=== PATIENT | male | born 1960 | race Caucasian/White ===

== ENCOUNTER 2020-12-08 11:54 | Emergency (ER) | payer OTHER ==
[~2020-12-08] VITALS: Ht 172.7 cm; Wt 83.0 kg
[2020-12-08 13:33] VITALS: BP 155/84
== END 2020-12-08 14:28 | disposition home or self-care (01) ==
LOC: ER 12:17
DX: Z93.1 Gastrostomy status (principal); Z86.16 Personal history of COVID-19; Z87.898 Personal history of other specified conditions; Z98.890 Other specified postprocedural states
CPT/HCPCS: 99281

== ENCOUNTER 2021-03-03 08:38 | Inpatient (IN) | payer OTHER ==
[2021-03-03] VITALS (26 sets, daily range): BP systolic 74–115; BP diastolic 46–73
[~2021-03-03] VITALS: Ht 170.2 cm; Wt 98.4 kg
[2021-03-03 09:10] LABS: HEMATOCRIT. 51.2 % (42.0-52.0); HEMOGLOBIN. 17.1 g/dL (14.0-18.0); MEAN CORPUSCULAR HEMOGLOBIN 26.7 pg (28.0-32.0); MEAN CORPUSCULAR VOLUME 79.8 fL (80.0-94.0); MEAN PLATELET VOLUME 8.7 fl (7.4-10.4); PLATELET 248 x1000/uL (130-400); RED BLOOD CELL COUNT 6.42 mill/uL (4.7-6.1); RED CELL DISTRIBUTION WIDTH 17.4 % (11.6-14.6)
[2021-03-03 09:21] LABS: CHLORIDE 98 mEq/L (98-107)
[2021-03-03 10:47] LABS: PLATELET ESTIMATE NORMAL
[2021-03-03] MEDS ORDERED: POLYMYXIN B SULFATE 500000 UNITS/VIAL ONE (15:12)
[2021-03-03] MEDS ORDERED: BUPIVACAINE HCL/PF 0.5% (5MG/ML) 10ML ONE (15:12)
[2021-03-03] MEDS ORDERED: ROCURONIUM BROMIDE 10MG/ML VIAL 5ML IV ONE ×2 (16:10→16:58)
[2021-03-03] MEDS ORDERED: DEXAMETHASONE 4MG/ML 1ML VIAL ONE (16:10)
[2021-03-03] MEDS ORDERED: DOPAMINE 400MG/250ML PREMIX 250 ML IV ONE (16:42)
[2021-03-03] MEDS ORDERED: CEFAZOLIN SODIUM 1000MG/VIAL ONE (16:54)
[2021-03-03] MEDS ORDERED: HYDROMORPHONE HCL/PF 2MG/ML (OR) ONE (16:59)
[2021-03-03] MEDS ORDERED: PROPOFOL 10MG/ML 100ML 100 ML IV PRN (17:45)
[2021-03-03] MEDS ORDERED: VASOPRESSIN 20 UNIT/ML 1ML ONE (17:57)
[2021-03-03] MEDS: VASOPRESSIN 20 UNIT in SODIUM CHLORIDE 0.9% 99 ML IV PRN (19:10)
[2021-03-03] MEDS: SODIUM CHLORIDE 0.9% 1,000 ML IV SCH (19:52)
[2021-03-03 20:39] LABS: BG BASE EXCESS -3.3 mmol/L (-2.0-2.0); BG CARBOXYHEMOGLOBIN 1.5 % (0.5-1.5); BG FRACTION INSPIRED OXYGEN 100; BG METHEMOGLOBIN 0.4 % (0.0-1.5); BG OXYGEN SATURATION 91.8 % (92.0-98.5); BG OXYHEMOGLOBIN 90.1 % (94.0-97.0); BG PCO2 74.5 mmHg (35.0-45.0); BG PH 7.177 (7.350-7.450); BG PO2 75.1 mmHg (75.0-100.0); BG SAMPLE SITE RIGHT RADIAL; BG TOTAL HEMOGLOBIN 14.7 g/dL (12.0-18.0); BG TOTAL RESPIRATORY RATE 16 b/min; BG VENT MODE VENT- PRVC
[2021-03-03] MEDS: PHENYLEPHRINE 100 MG in DEXT 5% WATER 240 ML IV PRN (22:11)
[2021-03-04] VITALS (84 sets, daily range): BP systolic 78–122; BP diastolic 33–88
[2021-03-04] MEDS ORDERED: PROPOFOL 10MG/ML 100ML 100 ML IV PRN ×2 (01:00→15:30)
[2021-03-04] MEDS: PHENYLEPHRINE 100 MG in DEXT 5% WATER 240 ML IV PRN ×3 (03:48→20:52)
[2021-03-04] MEDS: VASOPRESSIN 20 UNIT in SODIUM CHLORIDE 0.9% 99 ML IV PRN ×3 (03:48→18:51)
[2021-03-04] MEDS ORDERED: NALOXONE HCL 0.4MG/ML VIAL IV PRN (05:00)
[2021-03-04] MEDS: MORPHINE SULFATE 2 MG/ML CPJ (NOT FOR IM USE) IV PRN ×2 (05:04→22:43)
[2021-03-04] MEDS: SODIUM CHLORIDE 0.9% 1,000 ML IV SCH ×3 (05:05→19:38)
[2021-03-04 05:51] LABS: HEMATOCRIT. 44.9 % (42.0-52.0); HEMOGLOBIN. 14.3 g/dL (14.0-18.0); MEAN CORPUSCULAR HEMOGLOBIN 26.3 pg (28.0-32.0); MEAN CORPUSCULAR VOLUME 82.8 fL (80.0-94.0); MEAN PLATELET VOLUME 8.4 fl (7.4-10.4); PLATELET 259 x1000/uL (130-400); RED BLOOD CELL COUNT 5.42 mill/uL (4.7-6.1); RED CELL DISTRIBUTION WIDTH 17.7 % (11.6-14.6)
[2021-03-04] MEDS: PROPOFOL 10 MG/ML 100 ML IV PRN ×2 (06:58→17:50)
[2021-03-04 08:19] LABS: NUCLEATED RED BLOOD CELLS 1 /100 WBC; PLATELET ESTIMATE NORMAL
[2021-03-04 08:39] LABS: BG CARBOXYHEMOGLOBIN 0.7 % (0.5-1.5); BG DEOXYHEMOGLOBIN 2.3 % (0.0-5.0); BG FRACTION INSPIRED OXYGEN 100; BG HCO3 ACT 22.7 mmol/L (22.0-26.0); BG METHEMOGLOBIN 0.1 % (0.0-1.5); BG OXYGEN SATURATION 97.7 % (92.0-98.5); BG OXYHEMOGLOBIN 96.9 % (94.0-97.0); BG PCO2 52.6 mmHg (35.0-45.0); BG PH 7.253 (7.350-7.450); BG PO2 107.8 mmHg (75.0-100.0); BG SAMPLE SITE RIGHT RADIAL; BG TOTAL HEMOGLOBIN 15.1 g/dL (12.0-18.0); BG VENT MODE VENT - AC
[2021-03-04] MEDS ORDERED: ENOXAPARIN 40MG/0.4ML SYR SUBCUT SCH (09:00)
[2021-03-04] MEDS: ENOXAPARIN 30MG/0.3ML SYR SUBCUT SCH ×2 (09:20→20:51)
[2021-03-04] MEDS: PIPERACILLIN/TAZOBACTAM 3.375 G in DEXTROSE 5% WATER 50 ML IV SCH ×3 (09:21→21:55)
[2021-03-04 15:12] LABS: CLARITY URINE TURBID (CLEAR); COLOR URINE DARK YELLOW (YELLOW); KETONES URINE TRACE (NEGATIVE); LEUKOCYTE ESTERASE URINE TRACE (NEGATIVE); NITRITE URINE NEGATIVE (NEGATIVE); OCCULT BLOOD URINE 2+ (NEGATIVE); PROTEIN URINE 1+ (NEGATIVE); SPECIFIC GRAVITY URINE 1.021 (1.005-1.030)
[2021-03-04] MEDS: IPRATROPIUM/ALBUTEROL 0.5-3(2.5)MG/3ML NEB HHN SCH (20:30)
[2021-03-05] VITALS (85 sets, daily range): BP systolic 82–115; BP diastolic 47–74
[2021-03-05] MEDS: IPRATROPIUM/ALBUTEROL 0.5-3(2.5)MG/3ML NEB HHN SCH ×4 (02:13→20:25)
[2021-03-05] MEDS: VASOPRESSIN 20 UNIT in SODIUM CHLORIDE 0.9% 99 ML IV PRN ×3 (03:21→22:19)
[2021-03-05] MEDS: PHENYLEPHRINE 100 MG in DEXT 5% WATER 240 ML IV PRN ×4 (04:08→19:44)
[2021-03-05] MEDS: SODIUM CHLORIDE 0.9% 1,000 ML IV SCH ×2 (04:36→18:30)
[2021-03-05 05:59] LABS: HEMATOCRIT. 41.8 % (42.0-52.0); HEMOGLOBIN. 13.3 g/dL (14.0-18.0); MEAN CORPUSCULAR HEMOGLOBIN 26.3 pg (28.0-32.0); MEAN CORPUSCULAR VOLUME 82.7 fL (80.0-94.0); MEAN PLATELET VOLUME 9.8 fl (7.4-10.4); PLATELET 202 x1000/uL (130-400); RED BLOOD CELL COUNT 5.06 mill/uL (4.7-6.1); RED CELL DISTRIBUTION WIDTH 18.2 % (11.6-14.6)
[2021-03-05] MEDS: PIPERACILLIN/TAZOBACTAM 3.375 G in DEXTROSE 5% WATER 50 ML IV SCH ×2 (06:01→14:31)
[2021-03-05] MEDS: PROPOFOL 10 MG/ML 100 ML IV PRN (06:36)
[2021-03-05] MEDS: MORPHINE SULFATE 2 MG/ML CPJ (NOT FOR IM USE) IV PRN (06:38)
[2021-03-05 09:28] LABS: PLATELET ESTIMATE NORMAL
[2021-03-05 09:30] LABS: BG BASE EXCESS -3.3 mmol/L (-2.0-2.0); BG CARBOXYHEMOGLOBIN 0.8 % (0.5-1.5); BG DEOXYHEMOGLOBIN 3.7 % (0.0-5.0); BG FRACTION INSPIRED OXYGEN 100; BG HCO3 ACT 25.2 mmol/L (22.0-26.0); BG METHEMOGLOBIN 0.4 % (0.0-1.5); BG OXYGEN SATURATION 96.3 % (92.0-98.5); BG OXYHEMOGLOBIN 95.1 % (94.0-97.0); BG PCO2 59.9 mmHg (35.0-45.0); BG PH 7.241 (7.350-7.450); BG PO2 89.8 mmHg (75.0-100.0); BG SAMPLE SITE RIGHT RADIAL; BG TOTAL HEMOGLOBIN 14.1 g/dL (12.0-18.0); BG VENT MODE VENT - AC
[2021-03-05] MEDS: PANTOPRAZOLE SODIUM 40 MG/VIAL IV SCH (09:53)
[2021-03-05] MEDS: ENOXAPARIN 30MG/0.3ML SYR SUBCUT SCH (09:53)
[2021-03-05] MEDS ORDERED: MIDAZOLAM HCL 100 MG in SODIUM CHLORIDE 0.9% 80 ML IV PRN (10:15)
[2021-03-05] MEDS ORDERED: SODIUM CHLORIDE 0.9% 250 ML IV ONE (11:30)
[2021-03-05] MEDS: FENTANYL CITRATE/PF 2,500 MCG in SODIUM CHLORIDE 0.9% 200 ML IV PRN (18:17)
[2021-03-05] MEDS: PIPERACILLIN/TAZOBACTAM 2.25G in DEXTROSE 5% WATER 50ML IV SCH (19:27)
[2021-03-06] VITALS (86 sets, daily range): BP systolic 77–130; BP diastolic 50–82
[2021-03-06] MEDS: PHENYLEPHRINE 100 MG in DEXT 5% WATER 240 ML IV PRN ×5 (01:00→22:06)
[2021-03-06] MEDS: IPRATROPIUM/ALBUTEROL 0.5-3(2.5)MG/3ML NEB HHN SCH ×4 (01:38→20:23)
[2021-03-06] MEDS: PIPERACILLIN/TAZOBACTAM 2.25G in DEXTROSE 5% WATER 50ML IV SCH ×4 (02:47→20:16)
[2021-03-06] MEDS: SODIUM CHLORIDE 0.9% 1,000 ML IV SCH (03:30)
[2021-03-06 05:24] LABS: HEMATOCRIT. 38.7 % (42.0-52.0); HEMOGLOBIN. 12.1 g/dL (14.0-18.0); MEAN CORPUSCULAR HEMOGLOBIN 25.7 pg (28.0-32.0); MEAN CORPUSCULAR VOLUME 82.4 fL (80.0-94.0); PLATELET 198 x1000/uL (130-400); RED CELL DISTRIBUTION WIDTH 18.8 % (11.6-14.6)
[2021-03-06 06:01] LABS: PHOSPHORUS 7.4 mg/dL (2.5-4.9)
[2021-03-06] MEDS: VASOPRESSIN 20 UNIT in SODIUM CHLORIDE 0.9% 99 ML IV PRN ×2 (06:37→15:12)
[2021-03-06 08:37] LABS: BG BASE EXCESS -7.6 mmol/L (-2.0-2.0); BG CARBOXYHEMOGLOBIN 0.7 % (0.5-1.5); BG DEOXYHEMOGLOBIN 1.9 % (0.0-5.0); BG FRACTION INSPIRED OXYGEN 100; BG HCO3 ACT 20.2 mmol/L (22.0-26.0); BG METHEMOGLOBIN 0.4 % (0.0-1.5); BG OXYGEN SATURATION 98.1 % (92.0-98.5); BG PCO2 49.6 mmHg (35.0-45.0); BG PH 7.227 (7.350-7.450); BG PO2 103.6 mmHg (75.0-100.0); BG SAMPLE SITE LEFT RADIAL; BG TOTAL HEMOGLOBIN 13.6 g/dL (12.0-18.0); BG TOTAL RESPIRATORY RATE 30 b/min; BG VENT MODE VENT - AC
[2021-03-06] MEDS: PANTOPRAZOLE SODIUM 40 MG/VIAL IV SCH (09:14)
[2021-03-06] MEDS: ENOXAPARIN 40MG/0.4ML SYR SUBCUT SCH (09:14)
[2021-03-06 11:54] LABS: PLATELET ESTIMATE NORMAL
[2021-03-06] MEDS: ACETAMINOPHEN 650MG SUPP PR PRN (20:16)
[2021-03-07] VITALS (89 sets, daily range): BP systolic 89–126; BP diastolic 46–71
[2021-03-07] MEDS: IPRATROPIUM/ALBUTEROL 0.5-3(2.5)MG/3ML NEB HHN SCH ×4 (04:21→20:09)
[2021-03-07 05:59] LABS: HEMATOCRIT. 38.6 % (42.0-52.0); HEMOGLOBIN. 12.3 g/dL (14.0-18.0); MEAN CORPUSCULAR HEMOGLOBIN 25.9 pg (28.0-32.0); MEAN CORPUSCULAR VOLUME 81.3 fL (80.0-94.0); MEAN PLATELET VOLUME 9.8 fl (7.4-10.4); PLATELET 167 x1000/uL (130-400); RED BLOOD CELL COUNT 4.74 mill/uL (4.7-6.1); RED CELL DISTRIBUTION WIDTH 18.4 % (11.6-14.6)
[2021-03-07 06:14] LABS: PHOSPHORUS 5.2 mg/dL (2.5-4.9)
[2021-03-07] MEDS: PANTOPRAZOLE SODIUM 40 MG/VIAL IV SCH (08:15)
[2021-03-07] MEDS: PIPERACILLIN/TAZOBACTAM 2.25G in DEXTROSE 5% WATER 50ML IV SCH ×3 (08:15→21:14)
[2021-03-07] MEDS: ENOXAPARIN 40MG/0.4ML SYR SUBCUT SCH (08:15)
[2021-03-07 08:53] LABS: BG BASE EXCESS -4.6 mmol/L (-2.0-2.0); BG CARBOXYHEMOGLOBIN 0.3 % (0.5-1.5); BG DEOXYHEMOGLOBIN 1.5 % (0.0-5.0); BG FRACTION INSPIRED OXYGEN 100; BG HCO3 ACT 20.8 mmol/L (22.0-26.0); BG METHEMOGLOBIN 0.3 % (0.0-1.5); BG OXYGEN SATURATION 98.5 % (92.0-98.5); BG OXYHEMOGLOBIN 97.9 % (94.0-97.0); BG PCO2 39.6 mmHg (35.0-45.0); BG PH 7.339 (7.350-7.450); BG PO2 140.8 mmHg (75.0-100.0); BG SAMPLE SITE RIGHT RADIAL; BG TOTAL HEMOGLOBIN 12.8 g/dL (12.0-18.0); BG VENT MODE VENT - AC
[2021-03-07 11:55] LABS: NUCLEATED RED BLOOD CELLS 1 /100 WBC; PLATELET ESTIMATE NORMAL
[2021-03-07] MEDS: PHENYLEPHRINE 100 MG in DEXT 5% WATER 240 ML IV PRN (14:34)
[2021-03-07] MEDS: SODIUM CHLORIDE 0.9% 1,000 ML IV SCH (15:17)
[2021-03-08] VITALS (86 sets, daily range): BP systolic 90–140; BP diastolic 47–96
[2021-03-08] MEDS: SODIUM CHLORIDE 0.9% 1,000 ML IV SCH (00:46)
[2021-03-08] MEDS: IPRATROPIUM/ALBUTEROL 0.5-3(2.5)MG/3ML NEB HHN SCH ×4 (01:50→20:37)
[2021-03-08] MEDS: PIPERACILLIN/TAZOBACTAM 2.25G in DEXTROSE 5% WATER 50ML IV SCH ×4 (03:17→21:48)
[2021-03-08 05:41] LABS: HEMOGLOBIN. 11.7 g/dL (14.0-18.0); MEAN CORPUSCULAR HEMOGLOBIN 25.9 pg (28.0-32.0); MEAN CORPUSCULAR VOLUME 81.9 fL (80.0-94.0); MEAN PLATELET VOLUME 9.2 fl (7.4-10.4); PLATELET 157 x1000/uL (130-400); RED BLOOD CELL COUNT 4.52 mill/uL (4.7-6.1); RED CELL DISTRIBUTION WIDTH 18.2 % (11.6-14.6)
[2021-03-08 05:45] LABS: CHLORIDE 118 mEq/L (98-107)
[2021-03-08 05:52] LABS: PHOSPHORUS 3.8 mg/dL (2.5-4.9)
[2021-03-08] MEDS: ENOXAPARIN 40MG/0.4ML SYR SUBCUT SCH (08:48)
[2021-03-08] MEDS: PANTOPRAZOLE SODIUM 40 MG/VIAL IV SCH (09:00)
[2021-03-08 09:23] LABS: BG BASE EXCESS -4.2 mmol/L (-2.0-2.0); BG CARBOXYHEMOGLOBIN 0.3 % (0.5-1.5); BG DEOXYHEMOGLOBIN 1.8 % (0.0-5.0); BG FRACTION INSPIRED OXYGEN 90; BG HCO3 ACT 21.2 mmol/L (22.0-26.0); BG METHEMOGLOBIN 0.1 % (0.0-1.5); BG OXYGEN SATURATION 98.2 % (92.0-98.5); BG OXYHEMOGLOBIN 97.8 % (94.0-97.0); BG PCO2 40.1 mmHg (35.0-45.0); BG PH 7.342 (7.350-7.450); BG PO2 134.6 mmHg (75.0-100.0); BG SAMPLE SITE RIGHT RADIAL; BG TOTAL HEMOGLOBIN 12.5 g/dL (12.0-18.0); BG VENT MODE VENT - AC
[2021-03-08 10:45] LABS: PLATELET ESTIMATE NORMAL
[2021-03-08] MEDS: DEXTROSE 5% WATER 1,000 ML IV SCH ×2 (12:00→21:49)
[2021-03-08] MEDS: FENTANYL CITRATE/PF 2,500 MCG in SODIUM CHLORIDE 0.9% 200 ML IV PRN (22:11)
[2021-03-09] VITALS (80 sets, daily range): BP systolic 92–146; BP diastolic 55–80
[2021-03-09] MEDS: IPRATROPIUM/ALBUTEROL 0.5-3(2.5)MG/3ML NEB HHN SCH ×4 (00:53→20:41)
[2021-03-09] MEDS: PIPERACILLIN/TAZOBACTAM 2.25G in DEXTROSE 5% WATER 50ML IV SCH (02:59)
[2021-03-09 05:21] LABS: HEMATOCRIT. 34.4 % (42.0-52.0); HEMOGLOBIN. 10.9 g/dL (14.0-18.0); MEAN CORPUSCULAR HEMOGLOBIN 25.7 pg (28.0-32.0); MEAN PLATELET VOLUME 9.1 fl (7.4-10.4); PLATELET 179 x1000/uL (130-400); RED BLOOD CELL COUNT 4.24 mill/uL (4.7-6.1)
[2021-03-09 05:27] LABS: CHLORIDE 120 mEq/L (98-107)
[2021-03-09 05:35] LABS: PHOSPHORUS 2.3 mg/dL (2.5-4.9)
[2021-03-09] MEDS: PANTOPRAZOLE SODIUM 40 MG/VIAL IV SCH (08:53)
[2021-03-09] MEDS: ENOXAPARIN 40MG/0.4ML SYR SUBCUT SCH (08:53)
[2021-03-09 08:56] LABS: BG BASE EXCESS -0.4 mmol/L (-2.0-2.0); BG CARBOXYHEMOGLOBIN 0.1 % (0.5-1.5); BG DEOXYHEMOGLOBIN 5.7 % (0.0-5.0); BG FRACTION INSPIRED OXYGEN 75; BG HCO3 ACT 24.5 mmol/L (22.0-26.0); BG METHEMOGLOBIN 0.1 % (0.0-1.5); BG OXYGEN SATURATION 94.3 % (92.0-98.5); BG OXYHEMOGLOBIN 94.1 % (94.0-97.0); BG PCO2 41.3 mmHg (35.0-45.0); BG PH 7.391 (7.350-7.450); BG PO2 72.5 mmHg (75.0-100.0); BG SAMPLE SITE RIGHT RADIAL; BG VENT MODE VENT - AC
[2021-03-09] MEDS ORDERED: FUROSEMIDE 20MG/2ML VIAL IVP SCH (09:00)
[2021-03-09 09:30] LABS: PLATELET ESTIMATE NORMAL
[2021-03-09] MEDS ORDERED: POTASSIUM PHOS,M-BASIC-D-BASIC 15 MMOL in DEXT 5% WATER 245 ML IV SCH (11:00)
[2021-03-09] MEDS ORDERED: FENTANYL CITRATE/PF 2,500 MCG in SODIUM CHLORIDE 0.9% 200 ML IV PRN (17:30)
[2021-03-09] MEDS ORDERED: MIDAZOLAM HCL 100 MG in SODIUM CHLORIDE 0.9% 80 ML IV PRN (17:30)
[2021-03-09] MEDS: ENOXAPARIN 30MG/0.3ML SYR SUBCUT SCH (21:24)
[2021-03-10] VITALS (80 sets, daily range): BP systolic 84–143; BP diastolic 44–86
[2021-03-10] MEDS: IPRATROPIUM/ALBUTEROL 0.5-3(2.5)MG/3ML NEB HHN SCH ×4 (00:43→21:07)
[2021-03-10] MEDS: FENTANYL CITRATE/PF 2,500 MCG in SODIUM CHLORIDE 0.9% 200 ML IV PRN (01:00)
[2021-03-10] MEDS: ACETAMINOPHEN 650MG SUPP PR PRN (04:08)
[2021-03-10 06:25] LABS: HEMATOCRIT. 34.3 % (42.0-52.0); HEMOGLOBIN. 10.7 g/dL (14.0-18.0); MEAN CORPUSCULAR HEMOGLOBIN 25.6 pg (28.0-32.0); MEAN CORPUSCULAR VOLUME 81.8 fL (80.0-94.0); MEAN PLATELET VOLUME 9.2 fl (7.4-10.4); PLATELET 205 x1000/uL (130-400); RED BLOOD CELL COUNT 4.19 mill/uL (4.7-6.1); RED CELL DISTRIBUTION WIDTH 17.9 % (11.6-14.6)
[2021-03-10 06:31] LABS: CHLORIDE 127 mEq/L (98-107)
[2021-03-10 06:37] LABS: PHOSPHORUS 3.9 mg/dL (2.5-4.9)
[2021-03-10] MEDS: THIAMINE HCL 100MG TABLET PO SCH (08:19)
[2021-03-10] MEDS: ENOXAPARIN 30MG/0.3ML SYR SUBCUT SCH ×2 (08:19→21:17)
[2021-03-10] MEDS: FOLIC ACID 1MG TABLET PO SCH (08:19)
[2021-03-10] MEDS: PANTOPRAZOLE SODIUM 40 MG/VIAL IV SCH (08:19)
[2021-03-10] MEDS: DEXTROSE 5% WATER 1,000 ML IV SCH ×2 (09:59→21:16)
[2021-03-10 10:05] LABS: BG BASE EXCESS -0.1 mmol/L (-2.0-2.0); BG CARBOXYHEMOGLOBIN 0.4 % (0.5-1.5); BG DEOXYHEMOGLOBIN 2.7 % (0.0-5.0); BG FRACTION INSPIRED OXYGEN 75; BG HCO3 ACT 25.2 mmol/L (22.0-26.0); BG METHEMOGLOBIN 0.4 % (0.0-1.5); BG OXYGEN SATURATION 97.3 % (92.0-98.5); BG OXYHEMOGLOBIN 96.5 % (94.0-97.0); BG PCO2 43.6 mmHg (35.0-45.0); BG PO2 94.9 mmHg (75.0-100.0); BG SAMPLE SITE RIGHT RADIAL; BG TOTAL HEMOGLOBIN 11.5 g/dL (12.0-18.0); BG VENT MODE VENT - AC
[2021-03-10] MEDS ORDERED: FENTANYL CITRATE/PF 2,500 MCG in DEXT 5% WATER 200 ML IV PRN (12:27)
[2021-03-10] MEDS: METOCLOPRAMIDE HCL 10MG/2ML VIAL IV SCH ×2 (13:35→22:23)
[2021-03-10] MEDS ORDERED: CALCIUM GLUCONATE 1,000 MG in DEXT 5% WATER 90 ML IV NR (14:00)
[2021-03-10 14:08] LABS: PLATELET ESTIMATE NORMAL
[2021-03-10 14:11] LABS: SODIUM URINE RANDOM 5 mEq/L
[2021-03-11] VITALS (92 sets, daily range): BP systolic 86–141; BP diastolic 45–81
[2021-03-11] MEDS: IPRATROPIUM/ALBUTEROL 0.5-3(2.5)MG/3ML NEB HHN SCH ×4 (00:34→13:45)
[2021-03-11] MEDS: FENTANYL CITRATE/PF 2,500 MCG in SODIUM CHLORIDE 0.9% 200 ML IV PRN (02:15)
[2021-03-11 05:38] LABS: HEMATOCRIT. 35.7 % (42.0-52.0); HEMOGLOBIN. 11.4 g/dL (14.0-18.0); MEAN CORPUSCULAR HEMOGLOBIN 26.1 pg (28.0-32.0); MEAN CORPUSCULAR VOLUME 81.6 fL (80.0-94.0); PLATELET 223 x1000/uL (130-400); RED BLOOD CELL COUNT 4.38 mill/uL (4.7-6.1); RED CELL DISTRIBUTION WIDTH 17.9 % (11.6-14.6)
[2021-03-11 05:46] LABS: CHLORIDE 125 mEq/L (98-107)
[2021-03-11 05:51] LABS: PHOSPHORUS 2.8 mg/dL (2.5-4.9)
[2021-03-11] MEDS: DEXTROSE 5% WATER 1,000 ML IV SCH ×3 (06:54→22:25)
[2021-03-11] MEDS: METOCLOPRAMIDE HCL 10MG/2ML VIAL IV SCH ×3 (06:54→22:24)
[2021-03-11] MEDS: PANTOPRAZOLE SODIUM 40 MG/VIAL IV SCH (08:06)
[2021-03-11] MEDS: THIAMINE HCL 100MG TABLET PO SCH (08:07)
[2021-03-11] MEDS: ENOXAPARIN 30MG/0.3ML SYR SUBCUT SCH ×2 (08:07→21:28)
[2021-03-11] MEDS: FOLIC ACID 1MG TABLET PO SCH (08:07)
[2021-03-11 08:12] LABS: BG BASE EXCESS 1.9 mmol/L (-2.0-2.0); BG DEOXYHEMOGLOBIN 5.7 % (0.0-5.0); BG FRACTION INSPIRED OXYGEN 60; BG HCO3 ACT 27.2 mmol/L (22.0-26.0); BG METHEMOGLOBIN 0.2 % (0.0-1.5); BG OXYGEN SATURATION 94.3 % (92.0-98.5); BG OXYHEMOGLOBIN 94.1 % (94.0-97.0); BG PCO2 45.1 mmHg (35.0-45.0); BG PH 7.398 (7.350-7.450); BG PO2 71.8 mmHg (75.0-100.0); BG SAMPLE SITE RIGHT RADIAL; BG TOTAL HEMOGLOBIN 12.3 g/dL (12.0-18.0); BG VENT MODE VENT - AC
[2021-03-11] MEDS ORDERED: POTASSIUM CHLORIDE 20MEQ/PACKET NG NR (12:15)
[2021-03-11 12:31] LABS: PLATELET ESTIMATE NORMAL
[2021-03-11] MEDS ORDERED: KCL 20MEQ/100ML PREMIX 100 ML IV NR (14:00)
[2021-03-12] VITALS (75 sets, daily range): BP systolic 84–124; BP diastolic 45–86
[2021-03-12 05:37] LABS: HEMATOCRIT. 35.4 % (42.0-52.0); MEAN CORPUSCULAR HEMOGLOBIN 25.4 pg (28.0-32.0); MEAN CORPUSCULAR VOLUME 81.5 fL (80.0-94.0); MEAN PLATELET VOLUME 9.5 fl (7.4-10.4); PLATELET 259 x1000/uL (130-400); RED BLOOD CELL COUNT 4.35 mill/uL (4.7-6.1); RED CELL DISTRIBUTION WIDTH 18.5 % (11.6-14.6)
[2021-03-12 05:39] LABS: CHLORIDE 117 mEq/L (98-107)
[2021-03-12 05:48] LABS: PHOSPHORUS 2.7 mg/dL (2.5-4.9)
[2021-03-12] MEDS: IPRATROPIUM/ALBUTEROL 0.5-3(2.5)MG/3ML NEB HHN SCH ×5 (06:00→21:34)
[2021-03-12] MEDS: METOCLOPRAMIDE HCL 10MG/2ML VIAL IV SCH ×2 (06:22→14:04)
[2021-03-12] MEDS: DEXTROSE 5% WATER 1,000 ML IV SCH ×3 (06:22→23:11)
[2021-03-12] MEDS: THIAMINE HCL 100MG TABLET PO SCH (08:48)
[2021-03-12] MEDS: FOLIC ACID 1MG TABLET PO SCH (08:48)
[2021-03-12] MEDS: ENOXAPARIN 30MG/0.3ML SYR SUBCUT SCH ×2 (08:49→21:00)
[2021-03-12] MEDS: PANTOPRAZOLE SODIUM 40 MG/VIAL IV SCH (08:49)
[2021-03-12 09:09] LABS: BG BASE EXCESS 0.3 mmol/L (-2.0-2.0); BG CARBOXYHEMOGLOBIN 0.8 % (0.5-1.5); BG DEOXYHEMOGLOBIN 7.1 % (0.0-5.0); BG FRACTION INSPIRED OXYGEN 50; BG HCO3 ACT 25.9 mmol/L (22.0-26.0); BG METHEMOGLOBIN 0.3 % (0.0-1.5); BG OXYGEN SATURATION 92.8 % (92.0-98.5); BG OXYHEMOGLOBIN 91.8 % (94.0-97.0); BG PCO2 45.7 mmHg (35.0-45.0); BG PH 7.371 (7.350-7.450); BG PO2 65.5 mmHg (75.0-100.0); BG SAMPLE SITE RIGHT RADIAL; BG VENT MODE VENT - AC
[2021-03-12 11:07] LABS: PLATELET ESTIMATE NORMAL
[2021-03-12] MEDS: LACTULOSE 20G/30ML UDC NG SCH ×2 (14:04→17:02)
[2021-03-12] MEDS ORDERED: POTASSIUM CHLORIDE 10MEQ TABLET SR PO NR (20:00)
[2021-03-12] MEDS: FENTANYL CITRATE/PF 2,500 MCG in SODIUM CHLORIDE 0.9% 200 ML IV PRN ×2 (21:34)
[2021-03-13] VITALS (49 sets, daily range): BP systolic 77–136; BP diastolic 40–91
[2021-03-13] MEDS: IPRATROPIUM/ALBUTEROL 0.5-3(2.5)MG/3ML NEB HHN SCH ×4 (02:03→20:33)
[2021-03-13 06:17] LABS: CHLORIDE 114 mEq/L (98-107)
[2021-03-13 06:22] LABS: HEMATOCRIT. 36.1 % (42.0-52.0); HEMOGLOBIN. 11.2 g/dL (14.0-18.0); MEAN CORPUSCULAR HEMOGLOBIN 25.6 pg (28.0-32.0); MEAN CORPUSCULAR VOLUME 82.1 fL (80.0-94.0); MEAN PLATELET VOLUME 9.7 fl (7.4-10.4); PLATELET 263 x1000/uL (130-400); RED CELL DISTRIBUTION WIDTH 18.1 % (11.6-14.6)
[2021-03-13] MEDS: DEXTROSE 5% WATER 1,000 ML IV SCH ×2 (06:23→23:17)
[2021-03-13 06:24] LABS: PHOSPHORUS 3.3 mg/dL (2.5-4.9)
[2021-03-13] MEDS ORDERED: POTASSIUM CHLORIDE 20MEQ TABLET SR PO NR (07:00)
[2021-03-13 08:49] LABS: BG BASE EXCESS 0.1 mmol/L (-2.0-2.0); BG CARBOXYHEMOGLOBIN 0.7 % (0.5-1.5); BG DEOXYHEMOGLOBIN 2.7 % (0.0-5.0); BG FRACTION INSPIRED OXYGEN 50; BG HCO3 ACT 25.4 mmol/L (22.0-26.0); BG METHEMOGLOBIN 0.1 % (0.0-1.5); BG OXYGEN SATURATION 97.3 % (92.0-98.5); BG OXYHEMOGLOBIN 96.5 % (94.0-97.0); BG PCO2 43.8 mmHg (35.0-45.0); BG PH 7.381 (7.350-7.450); BG PO2 93.7 mmHg (75.0-100.0); BG SAMPLE SITE RIGHT RADIAL; BG TOTAL HEMOGLOBIN 11.7 g/dL (12.0-18.0); BG TOTAL RESPIRATORY RATE 30 b/min; BG VENT MODE VENT - AC
[2021-03-13] MEDS: LACTULOSE 20G/30ML UDC NG SCH ×2 (09:00→13:00)
[2021-03-13] MEDS: ENOXAPARIN 30MG/0.3ML SYR SUBCUT SCH ×2 (09:47→21:00)
[2021-03-13] MEDS: PANTOPRAZOLE SODIUM 40 MG/VIAL IV SCH (09:48)
[2021-03-13] MEDS: THIAMINE HCL 100MG TABLET PO SCH (09:48)
[2021-03-13] MEDS: FOLIC ACID 1MG TABLET PO SCH (09:48)
[2021-03-13 10:34] LABS: PLATELET ESTIMATE NORMAL
[2021-03-13] MEDS ORDERED: ROCURONIUM BROMIDE 10MG/ML VIAL 5ML IV ONE (17:46)
[2021-03-13] MEDS: MORPHINE SULFATE 2 MG/ML CPJ (NOT FOR IM USE) IV PRN (18:46)
[2021-03-13] MEDS: LORAZEPAM 2MG/ML CPJ IV PRN (21:47)
[2021-03-14] VITALS (58 sets, daily range): BP systolic 84–123; BP diastolic 47–71
[2021-03-14] MEDS ORDERED: ONDANSETRON HCL 4MG/2ML INJ IV PRN (01:00)
[2021-03-14] MEDS: LORAZEPAM 2MG/ML CPJ IV PRN (01:18)
[2021-03-14] MEDS: IPRATROPIUM/ALBUTEROL 0.5-3(2.5)MG/3ML NEB HHN SCH ×4 (01:48→20:45)
[2021-03-14] MEDS: ACETAMINOPHEN 650MG SUPP PR PRN (06:03)
[2021-03-14 06:20] LABS: HEMATOCRIT. 34.3 % (42.0-52.0); HEMOGLOBIN. 10.9 g/dL (14.0-18.0); MEAN CORPUSCULAR VOLUME 81.3 fL (80.0-94.0); MEAN PLATELET VOLUME 9.7 fl (7.4-10.4); PLATELET 273 x1000/uL (130-400); RED BLOOD CELL COUNT 4.21 mill/uL (4.7-6.1); RED CELL DISTRIBUTION WIDTH 17.7 % (11.6-14.6)
[2021-03-14 06:27] LABS: CHLORIDE 115 mEq/L (98-107)
[2021-03-14] MEDS: PANTOPRAZOLE SODIUM 40 MG/VIAL IV SCH (08:40)
[2021-03-14] MEDS: THIAMINE HCL 100MG TABLET PO SCH (08:40)
[2021-03-14] MEDS: FOLIC ACID 1MG TABLET PO SCH (08:40)
[2021-03-14] MEDS ORDERED: NALOXONE HCL 0.4MG/ML VIAL IV PRN (08:45)
[2021-03-14 09:08] LABS: BG BASE EXCESS 0.5 mmol/L (-2.0-2.0); BG CARBOXYHEMOGLOBIN 0.5 % (0.5-1.5); BG DEOXYHEMOGLOBIN 6.9 % (0.0-5.0); BG FRACTION INSPIRED OXYGEN 50; BG HCO3 ACT 26.1 mmol/L (22.0-26.0); BG METHEMOGLOBIN 0.3 % (0.0-1.5); BG OXYHEMOGLOBIN 92.3 % (94.0-97.0); BG PCO2 46.3 mmHg (35.0-45.0); BG PH 7.369 (7.350-7.450); BG PO2 67.2 mmHg (75.0-100.0); BG SAMPLE SITE RIGHT RADIAL; BG TOTAL HEMOGLOBIN 11.6 g/dL (12.0-18.0); BG VENT MODE VENT - AC
[2021-03-14] MEDS: CEFEPIME 1,000 MG in DEXTROSE 5% WATER 50 ML IV SCH ×2 (11:09→21:02)
[2021-03-14 11:53] LABS: NUCLEATED RED BLOOD CELLS 1 /100 WBC
[2021-03-14 11:54] LABS: PLATELET ESTIMATE NORMAL
[2021-03-14] MEDS: ACETYLCYSTEINE 100MG/ML 10% VIAL 4ML INH SCH (14:09)
[2021-03-14] MEDS: MORPHINE SULFATE 2 MG/ML CPJ (NOT FOR IM USE) IV PRN (17:59)
[2021-03-14] MEDS: DEXTROSE 5% WATER 1,000 ML IV SCH (21:01)
[2021-03-14] MEDS: ENOXAPARIN 30MG/0.3ML SYR SUBCUT SCH (21:02)
[2021-03-15] VITALS (85 sets, daily range): BP systolic 67–124; BP diastolic 40–91
[2021-03-15] MEDS: IPRATROPIUM/ALBUTEROL 0.5-3(2.5)MG/3ML NEB HHN SCH ×4 (00:44→19:38)
[2021-03-15] MEDS: ACETYLCYSTEINE 100MG/ML 10% VIAL 4ML INH SCH ×2 (00:45→09:13)
[2021-03-15 05:58] LABS: HEMATOCRIT. 31.3 % (42.0-52.0); MEAN CORPUSCULAR HEMOGLOBIN 25.8 pg (28.0-32.0); MEAN CORPUSCULAR VOLUME 80.5 fL (80.0-94.0); MEAN PLATELET VOLUME 9.1 fl (7.4-10.4); PLATELET 321 x1000/uL (130-400); RED BLOOD CELL COUNT 3.88 mill/uL (4.7-6.1); RED CELL DISTRIBUTION WIDTH 17.6 % (11.6-14.6)
[2021-03-15 06:09] LABS: CHLORIDE 114 mEq/L (98-107)
[2021-03-15 06:22] LABS: PHOSPHORUS 3.7 mg/dL (2.5-4.9)
[2021-03-15 08:13] LABS: BG BASE EXCESS 0.2 mmol/L (-2.0-2.0); BG CARBOXYHEMOGLOBIN 0.9 % (0.5-1.5); BG DEOXYHEMOGLOBIN 8.3 % (0.0-5.0); BG FRACTION INSPIRED OXYGEN 50; BG HCO3 ACT 25.3 mmol/L (22.0-26.0); BG METHEMOGLOBIN 0.3 % (0.0-1.5); BG OXYGEN SATURATION 91.6 % (92.0-98.5); BG OXYHEMOGLOBIN 90.5 % (94.0-97.0); BG PCO2 42.7 mmHg (35.0-45.0); BG PO2 61.3 mmHg (75.0-100.0); BG SAMPLE SITE RIGHT RADIAL; BG TOTAL HEMOGLOBIN 10.6 g/dL (12.0-18.0); BG VENT MODE VENT - AC
[2021-03-15] MEDS: ENOXAPARIN 30MG/0.3ML SYR SUBCUT SCH ×2 (08:48→21:26)
[2021-03-15] MEDS: CEFEPIME 1,000 MG in DEXTROSE 5% WATER 50 ML IV SCH ×2 (08:48→21:26)
[2021-03-15] MEDS: PANTOPRAZOLE SODIUM 40 MG/VIAL IV SCH (08:48)
[2021-03-15] MEDS: DOCUSATE SODIUM SUGAR FREE 100MG/10ML UDC NG SCH (08:48)
[2021-03-15] MEDS ORDERED: MIDODRINE HCL 5MG TABLET PO SCH ×2 (09:00→16:45)
[2021-03-15] MEDS ORDERED: FUROSEMIDE 40MG/4ML VIAL IVP SCH (09:00)
[2021-03-15] MEDS: MORPHINE SULFATE 2 MG/ML CPJ (NOT FOR IM USE) IV PRN (11:01)
[2021-03-15 11:38] LABS: PLATELET ESTIMATE NORMAL
[2021-03-15] MEDS ORDERED: MIDODRINE HCL 5MG TABLET PO PRN (13:00)
[2021-03-15] MEDS ORDERED: ALBUMIN HUMAN 25GM/100ML (25%) IV NR (16:45)
[2021-03-15] MEDS: DEXTROSE 5% WATER 1,000 ML IV SCH (17:05)
[2021-03-16] VITALS (73 sets, daily range): BP systolic 90–147; BP diastolic 51–91
[2021-03-16] MEDS: IPRATROPIUM/ALBUTEROL 0.5-3(2.5)MG/3ML NEB HHN SCH ×4 (01:38→20:15)
[2021-03-16] MEDS: ACETYLCYSTEINE 100MG/ML 10% VIAL 4ML INH SCH ×3 (01:39→14:11)
[2021-03-16 06:04] LABS: CHLORIDE 113 mEq/L (98-107); HEMATOCRIT. 30.1 % (42.0-52.0); HEMOGLOBIN. 9.6 g/dL (14.0-18.0); MEAN CORPUSCULAR HEMOGLOBIN 25.6 pg (28.0-32.0); MEAN CORPUSCULAR VOLUME 80.4 fL (80.0-94.0); MEAN PLATELET VOLUME 8.9 fl (7.4-10.4); PLATELET 363 x1000/uL (130-400); RED BLOOD CELL COUNT 3.74 mill/uL (4.7-6.1); RED CELL DISTRIBUTION WIDTH 17.4 % (11.6-14.6)
[2021-03-16 06:15] LABS: PHOSPHORUS 3.4 mg/dL (2.5-4.9)
[2021-03-16 08:50] LABS: BG BASE EXCESS 0.9 mmol/L (-2.0-2.0); BG CARBOXYHEMOGLOBIN 0.3 % (0.5-1.5); BG DEOXYHEMOGLOBIN 2.3 % (0.0-5.0); BG FRACTION INSPIRED OXYGEN 60; BG HCO3 ACT 25.3 mmol/L (22.0-26.0); BG METHEMOGLOBIN 0.3 % (0.0-1.5); BG OXYGEN SATURATION 97.7 % (92.0-98.5); BG OXYHEMOGLOBIN 97.1 % (94.0-97.0); BG PCO2 39.4 mmHg (35.0-45.0); BG PH 7.425 (7.350-7.450); BG PO2 103.4 mmHg (75.0-100.0); BG SAMPLE SITE LEFT RADIAL; BG TOTAL HEMOGLOBIN 10.3 g/dL (12.0-18.0); BG VENT MODE VENT - AC
[2021-03-16] MEDS ORDERED: FUROSEMIDE 40MG/4ML VIAL IVP SCH (09:00)
[2021-03-16] MEDS: MIDODRINE HCL 5MG TABLET PO SCH ×3 (09:19→17:00)
[2021-03-16] MEDS: CEFEPIME 1,000 MG in DEXTROSE 5% WATER 50 ML IV SCH ×2 (09:19→21:17)
[2021-03-16] MEDS: DEXTROSE 5% WATER 1,000 ML IV SCH (09:19)
[2021-03-16] MEDS: ENOXAPARIN 30MG/0.3ML SYR SUBCUT SCH ×2 (09:19→21:17)
[2021-03-16] MEDS: DOCUSATE SODIUM SUGAR FREE 100MG/10ML UDC NG SCH (09:19)
[2021-03-16] MEDS: PANTOPRAZOLE SODIUM 40 MG/VIAL IV SCH (09:23)
[2021-03-16 10:36] LABS: PLATELET ESTIMATE NORMAL
[2021-03-16] MEDS ORDERED: POTASSIUM CHLORIDE INJ 40 MEQ in DEXT 5% WATER 250 ML IV SCH (11:00)
[2021-03-17] VITALS (30 sets, daily range): BP systolic 100–129; BP diastolic 52–84
[2021-03-17] MEDS: IPRATROPIUM/ALBUTEROL 0.5-3(2.5)MG/3ML NEB HHN SCH ×4 (00:17→20:13)
[2021-03-17] MEDS: ACETYLCYSTEINE 100MG/ML 10% VIAL 4ML INH SCH ×4 (00:17→14:16)
[2021-03-17 06:10] LABS: HEMATOCRIT. 30.5 % (42.0-52.0); HEMOGLOBIN. 9.9 g/dL (14.0-18.0); MEAN CORPUSCULAR HEMOGLOBIN 25.9 pg (28.0-32.0); MEAN CORPUSCULAR VOLUME 79.7 fL (80.0-94.0); MEAN PLATELET VOLUME 9.2 fl (7.4-10.4); PLATELET 398 x1000/uL (130-400); RED BLOOD CELL COUNT 3.82 mill/uL (4.7-6.1); RED CELL DISTRIBUTION WIDTH 17.7 % (11.6-14.6)
[2021-03-17 06:12] LABS: CHLORIDE 112 mEq/L (98-107)
[2021-03-17 06:22] LABS: PHOSPHORUS 3.2 mg/dL (2.5-4.9)
[2021-03-17] MEDS ORDERED: FUROSEMIDE 40MG/4ML VIAL IVP NR (07:00)
[2021-03-17] MEDS ORDERED: POTASSIUM CHLORIDE INJ 40 MEQ in DEXT 5% WATER 250 ML IV SCH (09:00)
[2021-03-17 09:09] LABS: BG CARBOXYHEMOGLOBIN 0.2 % (0.5-1.5); BG FRACTION INSPIRED OXYGEN 50; BG HCO3 ACT 28.6 mmol/L (22.0-26.0); BG METHEMOGLOBIN 0.1 % (0.0-1.5); BG OXYHEMOGLOBIN 96.7 % (94.0-97.0); BG PCO2 43.1 mmHg (35.0-45.0); BG PO2 91.3 mmHg (75.0-100.0); BG SAMPLE SITE RIGHT BRACHIAL; BG TOTAL HEMOGLOBIN 10.6 g/dL (12.0-18.0); BG TOTAL RESPIRATORY RATE 26 b/min; BG VENT MODE VENT - AC
[2021-03-17 09:25] LABS: PLATELET ESTIMATE NORMAL
[2021-03-17] MEDS: DOCUSATE SODIUM SUGAR FREE 100MG/10ML UDC NG SCH (09:29)
[2021-03-17] MEDS: CEFEPIME 1,000 MG in DEXTROSE 5% WATER 50 ML IV SCH ×2 (09:29→20:49)
[2021-03-17] MEDS: PANTOPRAZOLE SODIUM 40 MG/VIAL IV SCH (09:31)
[2021-03-17] MEDS: ENOXAPARIN 30MG/0.3ML SYR SUBCUT SCH ×2 (09:31→20:52)
[2021-03-17] MEDS: MIDODRINE HCL 5MG TABLET PO SCH ×3 (09:33→17:19)
[2021-03-17] MEDS: DEXTROSE 5% WATER 1,000 ML IV SCH (10:25)
[2021-03-18] VITALS (19 sets, daily range): BP systolic 91–122; BP diastolic 36–74
[2021-03-18] MEDS: IPRATROPIUM/ALBUTEROL 0.5-3(2.5)MG/3ML NEB HHN SCH ×4 (02:07→20:50)
[2021-03-18] MEDS: DEXTROSE 5% WATER 1,000 ML IV SCH (06:11)
[2021-03-18 06:49] LABS: HEMATOCRIT. 30.9 % (42.0-52.0); HEMOGLOBIN. 9.7 g/dL (14.0-18.0); MEAN CORPUSCULAR HEMOGLOBIN 25.3 pg (28.0-32.0); MEAN CORPUSCULAR VOLUME 80.1 fL (80.0-94.0); MEAN PLATELET VOLUME 9.1 fl (7.4-10.4); PLATELET 374 x1000/uL (130-400); RED BLOOD CELL COUNT 3.86 mill/uL (4.7-6.1); RED CELL DISTRIBUTION WIDTH 17.4 % (11.6-14.6)
[2021-03-18 07:01] LABS: CHLORIDE 110 mEq/L (98-107)
[2021-03-18 07:18] LABS: PHOSPHORUS 2.6 mg/dL (2.5-4.9)
[2021-03-18] MEDS ORDERED: FUROSEMIDE 40MG/4ML VIAL IVP SCH (08:00)
[2021-03-18] MEDS ORDERED: POTASSIUM CHLORIDE 20MEQ/PACKET NG SCH (08:00)
[2021-03-18] MEDS ORDERED: POTASSIUM CHLORIDE INJ 40 MEQ in DEXT 5% WATER 250 ML IV NR (09:30)
[2021-03-18] MEDS: CEFEPIME 1,000 MG in DEXTROSE 5% WATER 50 ML IV SCH ×2 (09:30→20:18)
[2021-03-18] MEDS: ENOXAPARIN 30MG/0.3ML SYR SUBCUT SCH ×2 (09:30→20:17)
[2021-03-18] MEDS: DOCUSATE SODIUM SUGAR FREE 100MG/10ML UDC NG SCH (09:30)
[2021-03-18] MEDS: PANTOPRAZOLE SODIUM 40 MG/VIAL IV SCH (09:31)
[2021-03-18] MEDS: MIDODRINE HCL 5MG TABLET PO SCH ×3 (09:35→17:28)
[2021-03-18 11:01] LABS: PLATELET ESTIMATE NORMAL
[2021-03-18] MEDS ORDERED: LORAZEPAM 2MG/ML CPJ IM PRN (19:30)
[2021-03-18] MEDS ORDERED: MORPHINE SULFATE 2 MG/ML CPJ (NOT FOR IM USE) IV PRN (19:30)
[2021-03-18] MEDS: ACETYLCYSTEINE 100MG/ML 10% VIAL 4ML INH SCH (20:49)
[2021-03-19] VITALS (13 sets, daily range): BP systolic 90–122; BP diastolic 52–74
[2021-03-19] MEDS: IPRATROPIUM/ALBUTEROL 0.5-3(2.5)MG/3ML NEB HHN SCH ×4 (02:10→20:40)
[2021-03-19 05:53] LABS: HEMATOCRIT. 31.9 % (42.0-52.0); HEMOGLOBIN. 10.4 g/dL (14.0-18.0); MEAN CORPUSCULAR VOLUME 79.8 fL (80.0-94.0); MEAN PLATELET VOLUME 9.5 fl (7.4-10.4); PLATELET 364 x1000/uL (130-400); RED CELL DISTRIBUTION WIDTH 17.3 % (11.6-14.6)
[2021-03-19 06:03] LABS: CHLORIDE 109 mEq/L (98-107)
[2021-03-19 06:18] LABS: PHOSPHORUS 2.8 mg/dL (2.5-4.9)
[2021-03-19] MEDS: MIDODRINE HCL 5MG TABLET PO SCH ×3 (09:00→17:00)
[2021-03-19] MEDS: CEFEPIME 1,000 MG in DEXTROSE 5% WATER 50 ML IV SCH (09:14)
[2021-03-19] MEDS: DOCUSATE SODIUM SUGAR FREE 100MG/10ML UDC NG SCH (09:15)
[2021-03-19] MEDS: PANTOPRAZOLE SODIUM 40 MG/VIAL IV SCH (09:15)
[2021-03-19] MEDS: ENOXAPARIN 30MG/0.3ML SYR SUBCUT SCH ×2 (09:15→20:02)
[2021-03-19 10:30] LABS: BG BASE EXCESS 4.3 mmol/L (-2.0-2.0); BG CARBOXYHEMOGLOBIN 0.5 % (0.5-1.5); BG DEOXYHEMOGLOBIN 3.8 % (0.0-5.0); BG FRACTION INSPIRED OXYGEN 50; BG HCO3 ACT 29.3 mmol/L (22.0-26.0); BG OXYGEN SATURATION 96.2 % (92.0-98.5); BG OXYHEMOGLOBIN 95.7 % (94.0-97.0); BG PCO2 45.2 mmHg (35.0-45.0); BG PH 7.429 (7.350-7.450); BG PO2 80.2 mmHg (75.0-100.0); BG SAMPLE SITE LEFT RADIAL; BG TOTAL HEMOGLOBIN 11.8 g/dL (12.0-18.0); BG VENT MODE VENT - AC
[2021-03-19] MEDS: FUROSEMIDE 40MG/4ML VIAL IVP SCH (13:45)
[2021-03-19] MEDS ORDERED: POTASSIUM CHLORIDE INJ 40 MEQ in DEXT 5% WATER 250 ML IV ONE (14:00)
[2021-03-19 16:40] LABS: BG BASE EXCESS 5.4 mmol/L (-2.0-2.0); BG CARBOXYHEMOGLOBIN 0.3 % (0.5-1.5); BG DEOXYHEMOGLOBIN 5.4 % (0.0-5.0); BG FRACTION INSPIRED OXYGEN 40; BG HCO3 ACT 30.4 mmol/L (22.0-26.0); BG METHEMOGLOBIN 0.2 % (0.0-1.5); BG OXYGEN SATURATION 94.6 % (92.0-98.5); BG OXYHEMOGLOBIN 94.1 % (94.0-97.0); BG PCO2 46.6 mmHg (35.0-45.0); BG PH 7.433 (7.350-7.450); BG PO2 72.2 mmHg (75.0-100.0); BG SAMPLE SITE RIGHT RADIAL; BG TOTAL HEMOGLOBIN 11.7 g/dL (12.0-18.0); BG VENT MODE VENT - CPAP
[2021-03-19 18:44] LABS: PLATELET ESTIMATE NORMAL
[2021-03-20] VITALS (12 sets, daily range): BP systolic 107–133; BP diastolic 61–75
[2021-03-20] MEDS: IPRATROPIUM/ALBUTEROL 0.5-3(2.5)MG/3ML NEB HHN SCH ×4 (02:17→20:50)
[2021-03-20 07:04] LABS: HEMATOCRIT. 33.8 % (42.0-52.0); HEMOGLOBIN. 10.9 g/dL (14.0-18.0); MEAN CORPUSCULAR HEMOGLOBIN 25.9 pg (28.0-32.0); MEAN CORPUSCULAR VOLUME 80.6 fL (80.0-94.0); MEAN PLATELET VOLUME 9.4 fl (7.4-10.4); PLATELET 361 x1000/uL (130-400); RED BLOOD CELL COUNT 4.19 mill/uL (4.7-6.1); RED CELL DISTRIBUTION WIDTH 17.2 % (11.6-14.6)
[2021-03-20 07:11] LABS: CHLORIDE 111 mEq/L (98-107)
[2021-03-20 07:17] LABS: PHOSPHORUS 3.5 mg/dL (2.5-4.9)
[2021-03-20] MEDS: PANTOPRAZOLE SODIUM 40 MG/VIAL IV SCH (08:37)
[2021-03-20] MEDS: FUROSEMIDE 40MG/4ML VIAL IVP SCH (08:37)
[2021-03-20] MEDS: MIDODRINE HCL 5MG TABLET PO SCH ×3 (08:37→17:00)
[2021-03-20] MEDS: ENOXAPARIN 30MG/0.3ML SYR SUBCUT SCH ×2 (08:37→20:32)
[2021-03-20] MEDS: DOCUSATE SODIUM SUGAR FREE 100MG/10ML UDC NG SCH (08:40)
[2021-03-20 09:24] LABS: BG BASE EXCESS 3.4 mmol/L (-2.0-2.0); BG DEOXYHEMOGLOBIN 5.5 % (0.0-5.0); BG HCO3 ACT 29.3 mmol/L (22.0-26.0); BG METHEMOGLOBIN 0.2 % (0.0-1.5); BG OXYGEN SATURATION 94.4 % (92.0-98.5); BG OXYHEMOGLOBIN 93.3 % (94.0-97.0); BG PCO2 49.9 mmHg (35.0-45.0); BG PH 7.387 (7.350-7.450); BG PO2 74.8 mmHg (75.0-100.0); BG SAMPLE SITE RIGHT RADIAL; BG TOTAL HEMOGLOBIN 12.8 g/dL (12.0-18.0); BG TOTAL RESPIRATORY RATE 16 b/min; BG VENT MODE VENT - CPAP
[2021-03-20] MEDS ORDERED: POTASSIUM CHLORIDE INJ 40 MEQ in DEXT 5% WATER 250 ML IV SCH (11:00)
[2021-03-21] VITALS (13 sets, daily range): BP systolic 114–131; BP diastolic 66–78
[2021-03-21] MEDS: IPRATROPIUM/ALBUTEROL 0.5-3(2.5)MG/3ML NEB HHN SCH ×4 (01:57→20:36)
[2021-03-21 07:51] LABS: HEMATOCRIT. 34.1 % (42.0-52.0); HEMOGLOBIN. 10.7 g/dL (14.0-18.0); MEAN CORPUSCULAR HEMOGLOBIN 25.5 pg (28.0-32.0); MEAN CORPUSCULAR VOLUME 81.1 fL (80.0-94.0); MEAN PLATELET VOLUME 9.4 fl (7.4-10.4); PLATELET 372 x1000/uL (130-400); RED CELL DISTRIBUTION WIDTH 17.1 % (11.6-14.6)
[2021-03-21 08:00] LABS: CHLORIDE 110 mEq/L (98-107)
[2021-03-21 08:05] LABS: BG BASE EXCESS 5.7 mmol/L (-2.0-2.0); BG CARBOXYHEMOGLOBIN 0.4 % (0.5-1.5); BG DEOXYHEMOGLOBIN 4.2 % (0.0-5.0); BG FRACTION INSPIRED OXYGEN 35; BG HCO3 ACT 30.6 mmol/L (22.0-26.0); BG METHEMOGLOBIN 0.1 % (0.0-1.5); BG OXYGEN SATURATION 95.8 % (92.0-98.5); BG OXYHEMOGLOBIN 95.3 % (94.0-97.0); BG PCO2 46.1 mmHg (35.0-45.0); BG PO2 78.3 mmHg (75.0-100.0); BG SAMPLE SITE RIGHT RADIAL; BG TOTAL HEMOGLOBIN 11.7 g/dL (12.0-18.0); BG VENT MODE COOL AEROSOL
[2021-03-21 08:15] LABS: PHOSPHORUS 3.2 mg/dL (2.5-4.9)
[2021-03-21] MEDS: MIDODRINE HCL 5MG TABLET PO SCH ×3 (08:54→18:05)
[2021-03-21] MEDS: PANTOPRAZOLE SODIUM 40 MG/VIAL IV SCH (08:54)
[2021-03-21] MEDS: DOCUSATE SODIUM SUGAR FREE 100MG/10ML UDC NG SCH (08:54)
[2021-03-21] MEDS: ENOXAPARIN 30MG/0.3ML SYR SUBCUT SCH ×2 (09:03→20:21)
[2021-03-21] MEDS ORDERED: POTASSIUM CHLORIDE INJ 40 MEQ in DEXT 5% WATER 250 ML IV NR (11:00)
[2021-03-21 16:33] LABS: PLATELET ESTIMATE NORMAL
[2021-03-21 18:41] LABS: PLATELET ESTIMATE NORMAL
[2021-03-22] VITALS (12 sets, daily range): BP systolic 103–126; BP diastolic 64–76
[2021-03-22] MEDS: IPRATROPIUM/ALBUTEROL 0.5-3(2.5)MG/3ML NEB HHN SCH ×4 (00:34→21:20)
[2021-03-22 07:17] LABS: HEMATOCRIT. 35.5 % (42.0-52.0); HEMOGLOBIN. 11.2 g/dL (14.0-18.0); MEAN CORPUSCULAR HEMOGLOBIN 25.3 pg (28.0-32.0); MEAN CORPUSCULAR VOLUME 80.1 fL (80.0-94.0); MEAN PLATELET VOLUME 9.3 fl (7.4-10.4); PLATELET 363 x1000/uL (130-400); RED BLOOD CELL COUNT 4.42 mill/uL (4.7-6.1); RED CELL DISTRIBUTION WIDTH 17.2 % (11.6-14.6)
[2021-03-22 07:18] LABS: CHLORIDE 111 mEq/L (98-107)
[2021-03-22 07:29] LABS: PHOSPHORUS 2.4 mg/dL (2.5-4.9)
[2021-03-22] MEDS: DOCUSATE SODIUM SUGAR FREE 100MG/10ML UDC NG SCH (08:31)
[2021-03-22] MEDS: PANTOPRAZOLE SODIUM 40 MG/VIAL IV SCH (08:31)
[2021-03-22] MEDS: MIDODRINE HCL 5MG TABLET PO SCH ×3 (08:32→17:04)
[2021-03-22] MEDS: ENOXAPARIN 30MG/0.3ML SYR SUBCUT SCH ×2 (08:38→21:28)
[2021-03-22] MEDS ORDERED: POTASSIUM PHOS,M-BASIC-D-BASIC 15 MMOL in DEXT 5% WATER 245 ML IV NR (12:00)
[2021-03-22 15:20] LABS: PLATELET ESTIMATE NORMAL
[2021-03-23] VITALS (12 sets, daily range): BP systolic 92–113; BP diastolic 49–67
[2021-03-23] MEDS: IPRATROPIUM/ALBUTEROL 0.5-3(2.5)MG/3ML NEB HHN SCH ×4 (01:26→20:33)
[2021-03-23] MEDS: ACETAMINOPHEN 650MG SUPP PR PRN (04:25)
[2021-03-23 06:45] LABS: HEMATOCRIT. 32.5 % (42.0-52.0); HEMOGLOBIN. 10.3 g/dL (14.0-18.0); MEAN CORPUSCULAR HEMOGLOBIN 25.3 pg (28.0-32.0); MEAN CORPUSCULAR VOLUME 79.9 fL (80.0-94.0); MEAN PLATELET VOLUME 9.7 fl (7.4-10.4); PLATELET 332 x1000/uL (130-400); RED BLOOD CELL COUNT 4.07 mill/uL (4.7-6.1); RED CELL DISTRIBUTION WIDTH 17.1 % (11.6-14.6)
[2021-03-23] MEDS: DOCUSATE SODIUM SUGAR FREE 100MG/10ML UDC NG SCH (08:12)
[2021-03-23] MEDS: MIDODRINE HCL 5MG TABLET PO SCH ×3 (08:13→16:52)
[2021-03-23] MEDS: ENOXAPARIN 30MG/0.3ML SYR SUBCUT SCH ×2 (08:13→19:58)
[2021-03-23] MEDS: PANTOPRAZOLE SODIUM 40 MG/VIAL IV SCH (08:13)
[2021-03-23 08:17] LABS: CHLORIDE 105 mEq/L (98-107)
[2021-03-23 08:26] LABS: PHOSPHORUS 2.4 mg/dL (2.5-4.9)
[2021-03-23 15:33] LABS: PLATELET ESTIMATE NORMAL
[2021-03-23] MEDS ORDERED: ACETAMINOPHEN 650MG/20.3ML UDC PO PRN ×2 (19:45)
[2021-03-24] VITALS (12 sets, daily range): BP systolic 97–149; BP diastolic 58–78
[2021-03-24] MEDS: IPRATROPIUM/ALBUTEROL 0.5-3(2.5)MG/3ML NEB HHN SCH ×4 (01:16→20:46)
[2021-03-24] MEDS: PANTOPRAZOLE SODIUM 40 MG/VIAL IV SCH (08:59)
[2021-03-24] MEDS: DOCUSATE SODIUM SUGAR FREE 100MG/10ML UDC NG SCH (08:59)
[2021-03-24] MEDS: ENOXAPARIN 30MG/0.3ML SYR SUBCUT SCH ×2 (09:00→21:01)
[2021-03-24] MEDS: MIDODRINE HCL 5MG TABLET PO SCH ×3 (09:00→16:51)
[2021-03-24 09:53] LABS: HEMATOCRIT. 31.4 % (42.0-52.0); MEAN CORPUSCULAR HEMOGLOBIN 25.3 pg (28.0-32.0); MEAN CORPUSCULAR VOLUME 79.7 fL (80.0-94.0); MEAN PLATELET VOLUME 9.6 fl (7.4-10.4); PLATELET 326 x1000/uL (130-400); RED BLOOD CELL COUNT 3.94 mill/uL (4.7-6.1); RED CELL DISTRIBUTION WIDTH 17.1 % (11.6-14.6)
[2021-03-24 10:15] LABS: CHLORIDE 102 mEq/L (98-107)
[2021-03-24 10:22] LABS: PHOSPHORUS 2.4 mg/dL (2.5-4.9)
[2021-03-24] MEDS ORDERED: FUROSEMIDE 40MG/4ML VIAL IVP NR (10:30)
[2021-03-24] MEDS: CEFTRIAXONE 1,000 MG in DEXTROSE 5% WATER 50 ML IV SCH (13:16)
[2021-03-24 14:12] LABS: PLATELET ESTIMATE NORMAL
[2021-03-24] MEDS: ACETYLCYSTEINE 100MG/ML 10% VIAL 4ML INH SCH (14:40)
[2021-03-24] MEDS ORDERED: POTASSIUM-SODIUM PHOSPHATE POWDER PACKET PO NR (14:45)
[2021-03-25] VITALS (12 sets, daily range): BP systolic 104–120; BP diastolic 57–84
[2021-03-25] MEDS: ACETYLCYSTEINE 100MG/ML 10% VIAL 4ML INH SCH ×3 (00:46→16:06)
[2021-03-25] MEDS: IPRATROPIUM/ALBUTEROL 0.5-3(2.5)MG/3ML NEB HHN SCH ×4 (00:46→20:10)
[2021-03-25 06:39] LABS: HEMATOCRIT. 31.9 % (42.0-52.0); MEAN CORPUSCULAR HEMOGLOBIN 24.8 pg (28.0-32.0); MEAN CORPUSCULAR VOLUME 78.8 fL (80.0-94.0); MEAN PLATELET VOLUME 9.6 fl (7.4-10.4); PLATELET 323 x1000/uL (130-400); RED BLOOD CELL COUNT 4.04 mill/uL (4.7-6.1); RED CELL DISTRIBUTION WIDTH 17.3 % (11.6-14.6)
[2021-03-25 07:00] LABS: CHLORIDE 98 mEq/L (98-107)
[2021-03-25 07:08] LABS: PHOSPHORUS 2.8 mg/dL (2.5-4.9)
[2021-03-25] MEDS: PANTOPRAZOLE SODIUM 40 MG/VIAL IV SCH (08:09)
[2021-03-25] MEDS: DOCUSATE SODIUM SUGAR FREE 100MG/10ML UDC NG SCH (08:09)
[2021-03-25] MEDS: MIDODRINE HCL 5MG TABLET PO SCH ×4 (08:10→17:00)
[2021-03-25] MEDS: ENOXAPARIN 30MG/0.3ML SYR SUBCUT SCH ×2 (08:10→21:37)
[2021-03-25] MEDS: CEFTRIAXONE 1,000 MG in DEXTROSE 5% WATER 50 ML IV SCH (12:51)
[2021-03-26] VITALS (16 sets, daily range): BP systolic 101–118; BP diastolic 58–72
[2021-03-26] MEDS: IPRATROPIUM/ALBUTEROL 0.5-3(2.5)MG/3ML NEB HHN SCH ×4 (01:50→21:10)
[2021-03-26 06:23] LABS: HEMATOCRIT. 29.3 % (42.0-52.0); HEMOGLOBIN. 9.4 g/dL (14.0-18.0); MEAN CORPUSCULAR HEMOGLOBIN 25.2 pg (28.0-32.0); MEAN CORPUSCULAR VOLUME 78.3 fL (80.0-94.0); MEAN PLATELET VOLUME 9.4 fl (7.4-10.4); PLATELET 319 x1000/uL (130-400); RED BLOOD CELL COUNT 3.74 mill/uL (4.7-6.1); RED CELL DISTRIBUTION WIDTH 16.9 % (11.6-14.6)
[2021-03-26 06:45] LABS: CHLORIDE 99 mEq/L (98-107)
[2021-03-26 06:56] LABS: PHOSPHORUS 2.9 mg/dL (2.5-4.9)
[2021-03-26] MEDS: DOCUSATE SODIUM SUGAR FREE 100MG/10ML UDC NG SCH (08:13)
[2021-03-26] MEDS: PANTOPRAZOLE SODIUM 40 MG/VIAL IV SCH (08:13)
[2021-03-26] MEDS: POTASSIUM-SODIUM PHOSPHATE POWDER PACKET PO SCH (08:14)
[2021-03-26] MEDS: MIDODRINE HCL 5MG TABLET PO SCH ×3 (08:17→18:03)
[2021-03-26] MEDS: ENOXAPARIN 30MG/0.3ML SYR SUBCUT SCH ×2 (08:18→21:11)
[2021-03-26] MEDS: ACETYLCYSTEINE 100MG/ML 10% VIAL 4ML INH SCH ×3 (08:38→21:10)
[2021-03-26 10:44] LABS: PLATELET ESTIMATE NORMAL
[2021-03-26] MEDS: CEFTRIAXONE 1,000 MG in DEXTROSE 5% WATER 50 ML IV SCH (13:31)
[2021-03-26 18:33] LABS: PLATELET ESTIMATE NORMAL
[2021-03-27] VITALS (11 sets, daily range): BP systolic 107–124; BP diastolic 59–88
[2021-03-27] MEDS: IPRATROPIUM/ALBUTEROL 0.5-3(2.5)MG/3ML NEB HHN SCH ×4 (01:34→21:15)
[2021-03-27 07:24] LABS: HEMATOCRIT. 30.6 % (42.0-52.0); HEMOGLOBIN. 9.5 g/dL (14.0-18.0); MEAN CORPUSCULAR HEMOGLOBIN 24.9 pg (28.0-32.0); MEAN CORPUSCULAR VOLUME 80.2 fL (80.0-94.0); MEAN PLATELET VOLUME 8.9 fl (7.4-10.4); PLATELET 339 x1000/uL (130-400); RED BLOOD CELL COUNT 3.82 mill/uL (4.7-6.1); RED CELL DISTRIBUTION WIDTH 16.9 % (11.6-14.6)
[2021-03-27 07:44] LABS: CHLORIDE 101 mEq/L (98-107)
[2021-03-27] MEDS: DOCUSATE SODIUM SUGAR FREE 100MG/10ML UDC NG SCH (08:03)
[2021-03-27] MEDS: MIDODRINE HCL 5MG TABLET PO SCH ×3 (08:03→18:56)
[2021-03-27] MEDS: ENOXAPARIN 30MG/0.3ML SYR SUBCUT SCH ×2 (08:04→20:52)
[2021-03-27] MEDS: POTASSIUM-SODIUM PHOSPHATE POWDER PACKET PO SCH (08:04)
[2021-03-27 08:07] LABS: PHOSPHORUS 3.1 mg/dL (2.5-4.9)
[2021-03-27] MEDS: PANTOPRAZOLE SODIUM 40 MG/VIAL IV SCH (08:13)
[2021-03-27] MEDS: ACETYLCYSTEINE 100MG/ML 10% VIAL 4ML INH SCH ×2 (08:48→15:41)
[2021-03-27] MEDS: CEFTRIAXONE 1,000 MG in DEXTROSE 5% WATER 50 ML IV SCH (13:00)
[2021-03-27 18:02] LABS: PLATELET ESTIMATE NORMAL
[2021-03-28] VITALS (11 sets, daily range): BP systolic 96–125; BP diastolic 45–74
[2021-03-28] MEDS: ACETYLCYSTEINE 100MG/ML 10% VIAL 4ML INH SCH ×3 (02:18→14:00)
[2021-03-28] MEDS: IPRATROPIUM/ALBUTEROL 0.5-3(2.5)MG/3ML NEB HHN SCH ×4 (02:18→20:43)
[2021-03-28 05:54] LABS: CHLORIDE 102 mEq/L (98-107)
[2021-03-28 06:04] LABS: PHOSPHORUS 2.7 mg/dL (2.5-4.9)
[2021-03-28 06:26] LABS: HEMATOCRIT. 30.5 % (42.0-52.0); HEMOGLOBIN. 9.5 g/dL (14.0-18.0); MEAN CORPUSCULAR HEMOGLOBIN 24.8 pg (28.0-32.0); MEAN CORPUSCULAR VOLUME 79.2 fL (80.0-94.0); MEAN PLATELET VOLUME 8.9 fl (7.4-10.4); PLATELET 347 x1000/uL (130-400); RED BLOOD CELL COUNT 3.85 mill/uL (4.7-6.1); RED CELL DISTRIBUTION WIDTH 17.1 % (11.6-14.6)
[2021-03-28] MEDS: POTASSIUM-SODIUM PHOSPHATE POWDER PACKET PO SCH (10:31)
[2021-03-28] MEDS: PANTOPRAZOLE SODIUM 40 MG/VIAL IV SCH (10:31)
[2021-03-28] MEDS: DOCUSATE SODIUM SUGAR FREE 100MG/10ML UDC NG SCH (10:31)
[2021-03-28] MEDS: ENOXAPARIN 30MG/0.3ML SYR SUBCUT SCH ×2 (10:32→21:46)
[2021-03-28] MEDS: MIDODRINE HCL 5MG TABLET PO SCH ×3 (10:32→17:00)
[2021-03-28] MEDS: CEFTRIAXONE 1,000 MG in DEXTROSE 5% WATER 50 ML IV SCH (12:12)
[2021-03-28 20:11] LABS: PLATELET ESTIMATE NORMAL
[2021-03-28 20:34] LABS: CLARITY URINE CLEAR (CLEAR); COLOR URINE YELLOW (YELLOW); KETONES URINE NEGATIVE (NEGATIVE); LEUKOCYTE ESTERASE URINE NEGATIVE (NEGATIVE); NITRITE URINE NEGATIVE (NEGATIVE); OCCULT BLOOD URINE NEGATIVE (NEGATIVE); PROTEIN URINE NEGATIVE (NEGATIVE); SPECIFIC GRAVITY URINE 1.009 (1.005-1.030)
[2021-03-29] VITALS (12 sets, daily range): BP systolic 95–135; BP diastolic 60–71
[2021-03-29] MEDS: IPRATROPIUM/ALBUTEROL 0.5-3(2.5)MG/3ML NEB HHN SCH ×4 (02:38→21:50)
[2021-03-29 05:23] LABS: CHLORIDE 101 mEq/L (98-107)
[2021-03-29 05:31] LABS: PHOSPHORUS 2.9 mg/dL (2.5-4.9)
[2021-03-29 06:26] LABS: BASOPHILS % 0.4 % (0.0-2.0); EOSINOPHILS % 2.4 % (0.0-5.0); HEMATOCRIT. 29.9 % (42.0-52.0); HEMOGLOBIN. 9.6 g/dL (14.0-18.0); LYMPHOCYTES % 7.5 % (20.0-50.0); MEAN CORPUSCULAR HEMOGLOBIN 25.2 pg (28.0-32.0); MEAN CORPUSCULAR VOLUME 78.7 fL (80.0-94.0); MEAN PLATELET VOLUME 8.5 fl (7.4-10.4); MONOCYTES % 12.3 % (2.0-8.0); NEUTROPHILS % 77.4 % (40.0-76.0); PLATELET 355 x1000/uL (130-400); RED CELL DISTRIBUTION WIDTH 16.8 % (11.6-14.6)
[2021-03-29] MEDS: ACETYLCYSTEINE 100MG/ML 10% VIAL 4ML INH SCH ×2 (08:56→13:17)
[2021-03-29] MEDS: DOCUSATE SODIUM SUGAR FREE 100MG/10ML UDC NG SCH (09:45)
[2021-03-29] MEDS: PANTOPRAZOLE SODIUM 40 MG/VIAL IV SCH (09:45)
[2021-03-29] MEDS: POTASSIUM-SODIUM PHOSPHATE POWDER PACKET PO SCH (09:45)
[2021-03-29] MEDS: MIDODRINE HCL 5MG TABLET PO SCH ×3 (09:46→17:00)
[2021-03-29] MEDS: ENOXAPARIN 30MG/0.3ML SYR SUBCUT SCH ×2 (09:46→20:28)
[2021-03-29] MEDS: CEFTRIAXONE 1,000 MG in DEXTROSE 5% WATER 50 ML IV SCH (12:00)
[2021-03-29] MEDS ORDERED: ALPRAZOLAM 0.5 MG TABLET PO PRN (17:00)
[2021-03-30] VITALS (8 sets, daily range): BP systolic 84–113; BP diastolic 55–72
[2021-03-30] MEDS: IPRATROPIUM/ALBUTEROL 0.5-3(2.5)MG/3ML NEB HHN SCH ×4 (00:34→20:23)
[2021-03-30 05:46] LABS: HEMATOCRIT. 29.9 % (42.0-52.0); HEMOGLOBIN. 9.4 g/dL (14.0-18.0); MEAN CORPUSCULAR HEMOGLOBIN 25.2 pg (28.0-32.0); MEAN CORPUSCULAR VOLUME 80.3 fL (80.0-94.0); MEAN PLATELET VOLUME 8.1 fl (7.4-10.4); PLATELET 374 x1000/uL (130-400); RED BLOOD CELL COUNT 3.72 mill/uL (4.7-6.1); RED CELL DISTRIBUTION WIDTH 17.1 % (11.6-14.6)
[2021-03-30 05:49] LABS: CHLORIDE 102 mEq/L (98-107)
[2021-03-30 06:07] LABS: PHOSPHORUS 3.3 mg/dL (2.5-4.9)
[2021-03-30] MEDS: DOCUSATE SODIUM SUGAR FREE 100MG/10ML UDC NG SCH (08:33)
[2021-03-30] MEDS: POTASSIUM-SODIUM PHOSPHATE POWDER PACKET PO SCH (08:34)
[2021-03-30] MEDS: PANTOPRAZOLE SODIUM 40 MG/VIAL IV SCH (08:34)
[2021-03-30] MEDS: MIDODRINE HCL 5MG TABLET PO SCH ×3 (08:34→17:00)
[2021-03-30] MEDS: ENOXAPARIN 30MG/0.3ML SYR SUBCUT SCH ×2 (08:34→20:47)
[2021-03-31 00:10] VITALS: BP 103/68
[2021-03-31] MEDS: IPRATROPIUM/ALBUTEROL 0.5-3(2.5)MG/3ML NEB HHN SCH ×4 (01:57→20:42)
[2021-03-31 04:30] VITALS: BP 98/66
[2021-03-31 07:51] LABS: HEMATOCRIT. 28.9 % (42.0-52.0); HEMOGLOBIN. 9.3 g/dL (14.0-18.0); MEAN CORPUSCULAR HEMOGLOBIN 25.4 pg (28.0-32.0); MEAN CORPUSCULAR VOLUME 78.8 fL (80.0-94.0); MEAN PLATELET VOLUME 7.9 fl (7.4-10.4); PLATELET 400 x1000/uL (130-400); RED BLOOD CELL COUNT 3.67 mill/uL (4.7-6.1); RED CELL DISTRIBUTION WIDTH 17.2 % (11.6-14.6)
[2021-03-31 07:53] LABS: CHLORIDE 103 mEq/L (98-107)
[2021-03-31 08:00] VITALS: BP 95/59
[2021-03-31 08:01] LABS: PHOSPHORUS 3.3 mg/dL (2.5-4.9)
[2021-03-31] MEDS ORDERED: LIDOCAINE HCL/PF 1% 2ML VIAL ONE (08:25)
[2021-03-31 08:55] LABS: BG BASE EXCESS 2.5 mmol/L (-2.0-2.0); BG CARBOXYHEMOGLOBIN 0.4 % (0.5-1.5); BG DEOXYHEMOGLOBIN 5.3 % (0.0-5.0); BG HCO3 ACT 27.3 mmol/L (22.0-26.0); BG METHEMOGLOBIN 0.1 % (0.0-1.5); BG OXYGEN SATURATION 94.7 % (92.0-98.5); BG OXYHEMOGLOBIN 94.2 % (94.0-97.0); BG PO2 73.2 mmHg (75.0-100.0); BG SAMPLE SITE RIGHT RADIAL; BG TOTAL HEMOGLOBIN 10.7 g/dL (12.0-18.0); BG VENT MODE NASAL CANNULA
[2021-03-31] MEDS: POTASSIUM-SODIUM PHOSPHATE POWDER PACKET PO SCH (09:15)
[2021-03-31] MEDS: PANTOPRAZOLE SODIUM 40 MG/VIAL IV SCH (09:15)
[2021-03-31] MEDS: DOCUSATE SODIUM SUGAR FREE 100MG/10ML UDC NG SCH (09:15)
[2021-03-31] MEDS: ENOXAPARIN 30MG/0.3ML SYR SUBCUT SCH ×2 (09:15→21:21)
[2021-03-31] MEDS: MIDODRINE HCL 5MG TABLET PO SCH ×3 (09:17→17:02)
[2021-03-31 10:25] LABS: PLATELET ESTIMATE NORMAL
[2021-03-31 12:00] VITALS: BP 102/58
[2021-03-31 16:00] VITALS: BP 108/56
[2021-03-31 18:37] LABS: PLATELET ESTIMATE NORMAL
[2021-03-31 20:00] VITALS: BP 103/62
[2021-04-01 00:30] VITALS: BP 110/68
[2021-04-01] MEDS: IPRATROPIUM/ALBUTEROL 0.5-3(2.5)MG/3ML NEB HHN SCH ×3 (01:22→14:23)
[2021-04-01 04:30] VITALS: BP 101/68
[2021-04-01 08:00] VITALS: BP 106/59
[2021-04-01] MEDS: ENOXAPARIN 30MG/0.3ML SYR SUBCUT SCH ×2 (09:46→21:23)
[2021-04-01] MEDS: PANTOPRAZOLE SODIUM 40 MG/VIAL IV SCH (09:47)
[2021-04-01] MEDS: MIDODRINE HCL 5MG TABLET PO SCH ×3 (09:48→17:00)
[2021-04-01] MEDS: DOCUSATE SODIUM SUGAR FREE 100MG/10ML UDC NG SCH (09:49)
[2021-04-01] MEDS: POTASSIUM-SODIUM PHOSPHATE POWDER PACKET PO SCH (09:49)
[2021-04-01 12:00] VITALS: BP 122/69
[2021-04-01 16:00] VITALS: BP 106/56
[2021-04-01 20:00] VITALS: BP 111/66
[2021-04-02] VITALS: BP 98/67
[2021-04-02 04:00] VITALS: BP 107/61
[2021-04-02 06:29] LABS: CHLORIDE 102 mEq/L (98-107)
[2021-04-02 06:31] LABS: HEMATOCRIT. 29.4 % (42.0-52.0); HEMOGLOBIN. 9.4 g/dL (14.0-18.0); MEAN CORPUSCULAR HEMOGLOBIN 25.2 pg (28.0-32.0); MEAN CORPUSCULAR VOLUME 78.7 fL (80.0-94.0); MEAN PLATELET VOLUME 7.9 fl (7.4-10.4); PLATELET 394 x1000/uL (130-400); RED BLOOD CELL COUNT 3.73 mill/uL (4.7-6.1); RED CELL DISTRIBUTION WIDTH 17.3 % (11.6-14.6)
[2021-04-02 06:51] LABS: PHOSPHORUS 3.5 mg/dL (2.5-4.9)
[2021-04-02 08:00] VITALS: BP 105/64
[2021-04-02 08:10] VITALS: BP 105/64
[2021-04-02] MEDS: DOCUSATE SODIUM SUGAR FREE 100MG/10ML UDC NG SCH (08:49)
[2021-04-02] MEDS: PANTOPRAZOLE SODIUM 40 MG/VIAL IV SCH (08:49)
[2021-04-02] MEDS: ENOXAPARIN 30MG/0.3ML SYR SUBCUT SCH (08:51)
[2021-04-02] MEDS: MIDODRINE HCL 5MG TABLET PO SCH ×3 (08:51→16:29)
[2021-04-02] MEDS: POTASSIUM-SODIUM PHOSPHATE POWDER PACKET PO SCH (08:54)
[2021-04-02 12:18] VITALS: BP 104/48
[2021-04-02] MEDS: SODIUM HYPOCHLORITE 0.125% 473ML SOLUTION TOP SCH (16:22)
[2021-04-02] MEDS: FUROSEMIDE 20MG TABLET PO SCH (16:26)
[2021-04-02 16:33] LABS: PLATELET ESTIMATE NORMAL
[2021-04-02 21:00] VITALS: BP 102/58
[2021-04-03] VITALS: BP 111/59
[2021-04-03 03:51] VITALS: BP 106/62
[2021-04-03 05:12] LABS: BASOPHILS % 0.6 % (0.0-2.0); EOSINOPHILS % 2.8 % (0.0-5.0); HEMATOCRIT. 30.1 % (42.0-52.0); HEMOGLOBIN. 9.7 g/dL (14.0-18.0); LYMPHOCYTES % 8.8 % (20.0-50.0); MEAN CORPUSCULAR HEMOGLOBIN 25.3 pg (28.0-32.0); MEAN CORPUSCULAR VOLUME 78.5 fL (80.0-94.0); MEAN PLATELET VOLUME 7.5 fl (7.4-10.4); MONOCYTES % 9.1 % (2.0-8.0); NEUTROPHILS % 78.7 % (40.0-76.0); PLATELET 365 x1000/uL (130-400); RED BLOOD CELL COUNT 3.83 mill/uL (4.7-6.1)
[2021-04-03 05:17] LABS: CHLORIDE 103 mEq/L (98-107)
[2021-04-03 05:25] LABS: PHOSPHORUS 3.6 mg/dL (2.5-4.9)
[2021-04-03 08:00] VITALS: BP 103/67
[2021-04-03] MEDS: POTASSIUM-SODIUM PHOSPHATE POWDER PACKET PO SCH (09:13)
[2021-04-03] MEDS: MIDODRINE HCL 5MG TABLET PO SCH ×3 (09:13→17:11)
[2021-04-03] MEDS: FUROSEMIDE 20MG TABLET PO SCH (09:13)
[2021-04-03] MEDS: DOCUSATE SODIUM SUGAR FREE 100MG/10ML UDC NG SCH (09:13)
[2021-04-03 12:00] VITALS: BP 106/61
[2021-04-03 16:00] VITALS: BP 106/62
[2021-04-03 20:00] VITALS: BP 94/60
[2021-04-03] MEDS: ENOXAPARIN 30MG/0.3ML SYR SUBCUT SCH (21:19)
[2021-04-04] VITALS (7 sets, daily range): BP systolic 91–118; BP diastolic 55–76
[2021-04-04 06:44] LABS: CHLORIDE 102 mEq/L (98-107)
[2021-04-04 06:49] LABS: BASOPHILS % 0.4 % (0.0-2.0); EOSINOPHILS % 1.8 % (0.0-5.0); HEMATOCRIT. 29.9 % (42.0-52.0); HEMOGLOBIN. 9.6 g/dL (14.0-18.0); LYMPHOCYTES % 8.2 % (20.0-50.0); MEAN CORPUSCULAR HEMOGLOBIN 25.5 pg (28.0-32.0); MEAN CORPUSCULAR VOLUME 79.2 fL (80.0-94.0); MEAN PLATELET VOLUME 7.3 fl (7.4-10.4); MONOCYTES % 8.4 % (2.0-8.0); NEUTROPHILS % 81.2 % (40.0-76.0); PLATELET 405 x1000/uL (130-400); RED BLOOD CELL COUNT 3.78 mill/uL (4.7-6.1)
[2021-04-04 06:59] LABS: PHOSPHORUS 3.6 mg/dL (2.5-4.9)
[2021-04-04] MEDS: DOCUSATE SODIUM SUGAR FREE 100MG/10ML UDC NG SCH (08:43)
[2021-04-04] MEDS: FUROSEMIDE 20MG TABLET PO SCH (08:44)
[2021-04-04] MEDS: POTASSIUM-SODIUM PHOSPHATE POWDER PACKET PO SCH (08:44)
[2021-04-04] MEDS: ENOXAPARIN 30MG/0.3ML SYR SUBCUT SCH ×2 (08:44→20:44)
[2021-04-04] MEDS: MIDODRINE HCL 5MG TABLET PO SCH ×3 (08:44→17:56)
[2021-04-04] MEDS ORDERED: SPIRONOLACTONE 25MG TABLET PO SCH (09:00)
[2021-04-04] MEDS ORDERED: ALBU18HF2 IH (16:31)
[2021-04-04] MEDS ORDERED: FURO20TA4 PO (16:31)
[2021-04-04] MEDS ORDERED: MIDO5TAB4 PO (16:31)
[2021-04-04] MEDS ORDERED: FERR-71 MT (16:32)
[2021-04-04] MEDS ORDERED: DOCU-138 MT (16:32)
[2021-04-04] MEDS: SODIUM HYPOCHLORITE 0.125% 473ML SOLUTION TOP SCH (18:00)
[2021-04-05] MEDS ORDERED: SPIRONOLACTONE 25MG TABLET PO SCH (09:00)
== END 2021-04-04 21:55 | disposition home health service (06) | DRG 4 ==
LOC: ER 08:40 → CVICU 12:57 → CANRESERV 13:47 → ENRESERV 13:47 → 5EST 03-17 05:58 → 6WST 03-30 12:27
PROVIDERS: ADMIT Internal Medicine; ATTEND Internal Medicine
PROC: 0DBU0ZZ Excision of Omentum, Open Approach (ICD-10-PCS; 2021-03-03)
PROC: 5A1955Z Respiratory Ventilation, Greater than 96 Consecutive Hours (ICD-10-PCS; 2021-03-03)
PROC: 0WUF0JZ Supplement Abdominal Wall with Synthetic Substitute, Open Approach (ICD-10-PCS; 2021-03-03)
PROC: 0BH17EZ Insertion of Endotracheal Airway into Trachea, Via Natural or Artificial Opening (ICD-10-PCS; 2021-03-03)
PROC: 0B110F4 Bypass Trachea to Cutaneous with Tracheostomy Device, Open Approach (ICD-10-PCS; principal; 2021-03-13)
DX: A41.9 Sepsis, unspecified organism (principal); N17.0 Acute kidney failure with tubular necrosis; R65.21 Severe sepsis with septic shock; E43 Unspecified severe protein-calorie malnutrition; I50.23 Acute on chronic systolic (congestive) heart failure; J84.9 Interstitial pulmonary disease, unspecified; K43.6 Other and unspecified ventral hernia with obstruction, without gangrene; E87.0 Hyperosmolality and hypernatremia; J80 Acute respiratory distress syndrome; E87.2 Acidosis; I11.0 Hypertensive heart disease with heart failure; E66.2 Morbid (severe) obesity with alveolar hypoventilation; K42.9 Umbilical hernia without obstruction or gangrene; E83.41 Hypermagnesemia; E83.51 Hypocalcemia; E87.1 Hypo-osmolality and hyponatremia; E87.6 Hypokalemia; I49.3 Ventricular premature depolarization; N39.0 Urinary tract infection, site not specified; L03.311 Cellulitis of abdominal wall; Z99.11 Dependence on respirator [ventilator] status; Z78.1 Physical restraint status; Z82.49 Family history of ischemic heart disease and other diseases of the circulatory system; Z86.16 Personal history of COVID-19
CPT/HCPCS: 36415; 36600; 71045; 74018; 74176; 76770; 80048; 80053; 81003; 82330; 82375; 82550; 82805; 83735; 83880; 83935; 84100; 84145; 84300; 84478; 85025; 87070; 87077; 87186; 87426; 88305; 92610; 93005; 93306; 94002; 94003; 94640; 97110; 97116; 97162; 97166; 97530; 97535; 99291; A6261; C1781; C9113; J0610; J0690; J0692; J0696; J1100; J1170; J1265; J1650; J1940; J2060; J2250; J2270; J2370; J2405; J2543; J2704; J2765; J3010; J3480; J3490; J7030; J7050; J7060; J7070; J7608; P9047

== ENCOUNTER 2021-05-25 08:58 | Inpatient (IN) | payer OTHER ==
[~2021-05-25] VITALS: Ht 167.6 cm; Wt 106.6 kg
[~2021-05-25 08:58] MED LIST: ALBU18HF2 IH; DOCU-138 MT; FERR-71 MT; FURO20TA4 PO; MIDO5TAB4 PO
[2021-05-25] MEDS ORDERED: PIPERACILLIN/TAZ 3.375G PREMIX 50 ML IV ONE (10:15)
[2021-05-25] MEDS ORDERED: VANCOMYCIN 1 G PREMIX 200 ML IV ONE (10:15)
[2021-05-25 10:25] LABS: EOSINOPHILS % 2.2 % (0.0-5.0); HEMATOCRIT. 36.6 % (42.0-52.0); HEMOGLOBIN. 11.8 g/dL (14.0-18.0); MEAN CORPUSCULAR HEMOGLOBIN 26.6 pg (28.0-32.0); MEAN CORPUSCULAR VOLUME 82.2 fL (80.0-94.0); MEAN PLATELET VOLUME 7.4 fl (7.4-10.4); MONOCYTES % 10.7 % (2.0-8.0); NEUTROPHILS % 72.1 % (40.0-76.0); PLATELET 272 x1000/uL (130-400); RED BLOOD CELL COUNT 4.45 mill/uL (4.7-6.1); RED CELL DISTRIBUTION WIDTH 19.6 % (11.6-14.6)
[2021-05-25 10:31] LABS: CHLORIDE 106 mEq/L (98-107)
[2021-05-25 10:34] LABS: PROTHROMBIN TIME 10.9 sec (9.6-11.0)
[2021-05-25 10:36] LABS: ETHANOL BLOOD < 10 mg/dL
[2021-05-25] MEDS ORDERED: FUROSEMIDE 20MG/2ML VIAL IVP ONE (12:15)
[2021-05-25 13:38] LABS: CLARITY URINE CLEAR (CLEAR); COLOR URINE YELLOW (YELLOW); KETONES URINE NEGATIVE (NEGATIVE); LEUKOCYTE ESTERASE URINE NEGATIVE (NEGATIVE); NITRITE URINE NEGATIVE (NEGATIVE); OCCULT BLOOD URINE NEGATIVE (NEGATIVE); PH URINE 6.5 (4.5-8.0); PROTEIN URINE NEGATIVE (NEGATIVE); SPECIFIC GRAVITY URINE 1.012 (1.005-1.030); UROBILINOGEN URINE 0.2 E.U./dL (0.2-1.0)
[2021-05-25 13:57] LABS: *BARBITURATES SCREEN URINE NEGATIVE (NEGATIVE); OPIATES URINE SCREEN NEGATIVE (NEGATIVE)
[2021-05-25 13:58] LABS: CANNABINOID URINE SCREEN NEGATIVE (NEGATIVE); METHADONE URINE SCREEN NEGATIVE (NEGATIVE); PHENCYCLIDINE URINE SCREEN NEGATIVE (NEGATIVE)
[2021-05-25 14:00] LABS: *AMPHETAMINES SCREEN URINE NEGATIVE (NEGATIVE)
[2021-05-25 14:01] LABS: *BENZODIAZEPINES SCREEN URINE NEGATIVE (NEGATIVE)
[2021-05-25 14:04] LABS: *COCAINE SCREEN URINE NEGATIVE (NEGATIVE)
[2021-05-25] MEDS ORDERED: IOHEXOL-300 100 ML BOTTLE ONE ×2 (14:20→20:57)
[2021-05-25] MEDS ORDERED: DIATR MEGLU/DIATRIZOATE SOLN 30ML ONE (14:41)
[2021-05-25] MEDS ORDERED: AZITHROMYCIN 500 MG in DEXT 5% WATER 250 ML IV SCH (15:00)
[2021-05-25] MEDS ORDERED: AZITHROMYCIN 500MG/250ML 250 ML IV NR (16:15)
[2021-05-25 23:14] VITALS: BP 136/78
[2021-05-25] MEDS ORDERED: HYDROCODONE/ACETAMINOPHEN 5/325MG TABLET PO PRN (23:45)
[2021-05-25] MEDS ORDERED: NALOXONE HCL 0.4MG/ML VIAL IV PRN (23:45)
[2021-05-26] VITALS: BP 137/86
[2021-05-26] MEDS: CEFAZOLIN 1000MG PREMIX 50 ML IV SCH ×2 (03:06→12:13)
[2021-05-26 04:00] VITALS: BP 138/81
[2021-05-26] MEDS: ACETAMINOPHEN 325MG TABLET PO PRN ×2 (04:59→08:18)
[2021-05-26 08:00] VITALS: BP 147/94
[2021-05-26] MEDS: DOCUSATE SODIUM 100MG CAPSULE PO SCH ×2 (08:17→16:11)
[2021-05-26] MEDS: MIDODRINE HCL 5MG TABLET PO SCH ×2 (08:17→12:05)
[2021-05-26] MEDS: FUROSEMIDE 40MG/4ML VIAL IVP SCH ×2 (08:17→20:36)
[2021-05-26] MEDS: ENOXAPARIN 30MG/0.3ML SYR SUBCUT SCH ×2 (10:49→20:36)
[2021-05-26 11:46] VITALS: BP 115/59
[2021-05-26] MEDS: IPRATROPIUM/ALBUTEROL 0.5-3(2.5)MG/3ML NEB HHN SCH ×3 (12:53→20:59)
[2021-05-26 15:45] VITALS: BP 106/62
[2021-05-26 20:00] VITALS: BP 118/65
[2021-05-26] MEDS: CARVEDILOL 3.125 MG TABLET PO SCH (20:36)
[2021-05-27] VITALS: BP 125/72
[2021-05-27] MEDS: IPRATROPIUM/ALBUTEROL 0.5-3(2.5)MG/3ML NEB HHN SCH ×4 (00:40→12:42)
[2021-05-27 04:00] VITALS: BP 127/63
[2021-05-27 06:11] LABS: CHLORIDE 103 mEq/L (98-107)
[2021-05-27 07:56] VITALS: BP 121/73
[2021-05-27] MEDS: FUROSEMIDE 40MG/4ML VIAL IVP SCH (08:23)
[2021-05-27] MEDS: DOCUSATE SODIUM 100MG CAPSULE PO SCH (08:23)
[2021-05-27] MEDS: ENOXAPARIN 30MG/0.3ML SYR SUBCUT SCH (08:24)
[2021-05-27] MEDS: CARVEDILOL 3.125 MG TABLET PO SCH (08:24)
[2021-05-27 12:01] VITALS: BP 110/61
[2021-05-27] MEDS ORDERED: COR3 PO (14:24)
[2021-05-27] MEDS ORDERED: POTA20TA82 MT (14:24)
[2021-05-27] MEDS ORDERED: ALBU18HF2 IH (14:24)
[2021-05-27] MEDS ORDERED: DOCU-150 PO (14:24)
[2021-05-27] MEDS ORDERED: LOSA25TA26 MT (14:24)
[2021-05-27] MEDS ORDERED: FLUT1DIS3 INH (14:24)
[2021-05-27] MEDS ORDERED: FURO-151 MT (14:24)
[2021-05-27 14:35] VITALS: BP 110/61
== END 2021-05-27 15:20 | disposition home or self-care (01) | DRG 194 ==
LOC: ER 08:58 → 7EST 12:32 → EDBEDREQSVC 12:41 → EDBEDREQ 12:41 → ENRESERV 20:13
PROVIDERS: ADMIT Internal Medicine; ATTEND Internal Medicine
DX: I11.0 Hypertensive heart disease with heart failure (principal); J96.00 Acute respiratory failure, unspecified whether with hypoxia or hypercapnia; E44.0 Moderate protein-calorie malnutrition; I50.23 Acute on chronic systolic (congestive) heart failure; D64.9 Anemia, unspecified; Z20.822 Contact with and (suspected) exposure to COVID-19; I42.9 Cardiomyopathy, unspecified; Z79.84 Long term (current) use of oral hypoglycemic drugs; Z79.899 Other long term (current) drug therapy; Z86.16 Personal history of COVID-19; Z68.37 Body mass index [BMI] 37.0-37.9, adult; Z93.0 Tracheostomy status; E66.9 Obesity, unspecified; Z98.890 Other specified postprocedural states; Z71.3 Dietary counseling and surveillance
CPT/HCPCS: 36415; 71045; 74176; 74177; 80048; 80053; 80305; 80320; 81003; 83605; 83880; 84145; 84484; 85025; 86850; 86900; 87070; 87077; 87186; 87426; 93005; 93970; 94640; 99291; J0456; J0690; J1650; J1940; J2543; J3370; Q9963; Q9967; G0480